=== PATIENT | male | born 1965 | race Caucasian/White ===

== ENCOUNTER 2017-05-30 10:00 | Inpatient (IN) | payer OTHER ==
[2017-05-30] MEDS ORDERED: NS 0.9% 1000 ML* 1,000 ML IV ONE (10:12)
[2017-05-30] MEDS ORDERED: Albuterol/Ipratropium NEB.SOL* Albuterol 2.5 MG/Ipratropium 0.5 MG 3 ML INH ONE (10:51)
[2017-05-30 11:06] LABS: ABS Basophils 0 10^3/ul (0-0.2); ABS Eosinophils 0 10^3/ul (0-0.6); ABS Lymphocytes 0.7 10^3/ul (1.0-4.8); ABS Monocytes 0.4 10^3/ul (0-0.8); ABS Neutrophils 7.8 10^3/ul (1.5-7.7); ABS Nucleated RBC 0 10^3/ul; Eosinophil % 0.1 % (0-6); Hematocrit 44 % (42-52); Hemoglobin 15.2 g/dl (14.0-18.0); Lymphocyte % 8.2 % (25-47); Mean Corpuscular HGB Conc 35 g/dl (31-36); Mean Corpuscular Hemoglobin 31 pg (27-31); Mean Corpuscular Volume 91 fL (80-94); Mean Platelet Volume 8 um3 (7.4-10.4); Nucleated Red Blood Cells % 0; Platelet Count 178 10^3/ul (150-450); Red Blood Count 4.84 10^6/ul (4.0-5.4); Red Cell Distribution Width 14 % (10.5-15)
--- NOTE | 2017-05-30 11:07 | RAD ---
HISTORY: Unresponsive COMPARISONS: June 29, 2015 VIEWS: 2: frontal portable view of the chest at 10:30 AM FINDINGS: LINES AND TUBES: None. CARDIOMEDIASTINAL SILHOUETTE: The cardiomediastinal silhouette is normal for portable technique. PLEURA: The costophrenic angles are sharp. No pleural abnormalities are noted. LUNG PARENCHYMA: There is a nodular density overlying the right lower lung on the frontal view measuring 2.4 cm in size. ABDOMEN: The upper abdomen is clear. There is no subphrenic gas. BONES AND SOFT TISSUES: No bone or soft tissue abnormalities are noted. IMPRESSION: 2.4 CM ILL-DEFINED NODULAR DENSITY OVERLYING THE RIGHT LOWER LUNG ON THE FRONTAL VIEW. RECOMMEND CONSIDERATION OF FURTHER EVALUATION WITH CONTRAST-ENHANCED CT OF THE CHEST
[2017-05-30 11:24] LABS: EGFR Non-African American 83.6 (>60)
[2017-05-30 11:59] LABS: Urine Appearance Clear; Urine Blood 1+ (Negative); Urine Color Yellow; Urine Ketones Trace (Negative); Urine Protein Negative (Negative); Urine Specific Gravity 1.039 (1.010-1.030); Urine Urobilinogen Negative (Negative)
[2017-05-30] MEDS ORDERED: Albuterol 2.5 MG/3 ML NEB.SOL* (0.083%) INH PRN (12:04)
[2017-05-30] MEDS ORDERED: Ondansetron INJ* 2 MG/ML VIAL IV PRN (12:04)
[2017-05-30] MEDS ORDERED: Piperacillin/Tazobac ADVAN(*) 3.375 GM in NS 0.9% 100 ML* 100 ML IVPB ONE (12:04)
[2017-05-30] MEDS ORDERED: methylPREDNISolone 125 MG* 2 ML VIAL IV ONE (12:10)
[2017-05-30] MEDS ORDERED: Piperacillin/Tazobac (*) 3.375 GM BAG ONE (12:16)
[2017-05-30] MEDS ORDERED: Iohexol 300* (CONTRAST) 10 ML SDV IV ONE (12:21)
[2017-05-30] MEDS ORDERED: Dextrose 50% Syringe 50 ML* 25 GM/50 ML SYRINGE IV PUSH PRN ×2 (12:23→17:21)
[2017-05-30] MEDS ORDERED: Iohexol 350* (CONTRAST) 500 ML MDV IV ONE (12:27)
[2017-05-30] MEDS ORDERED: Azithromycin IV(*) 500 MG in NS 0.9% 250 ML* 250 ML IVPB SCH (13:00)
[2017-05-30] MEDS ORDERED: Zosyn per Pharmacy* NOTE FOLLOW UP SCH (13:00)
[2017-05-30] MEDS ORDERED: methylPREDNISolone 125 MG* 2 ML VIAL IV SCH (13:00)
[2017-05-30] MEDS ORDERED: Insulin GLARGINE(*) 1 UNITS UNIT SUBCUT SCH (13:00)
--- NOTE | 2017-05-30 13:24 | RAD ---
HISTORY: Shortness of breath, cough COMPARISONS: Chest x-ray dated May 30, 2017 TECHNIQUE: Multiple contiguous axial CT scans of the chest were obtained after the administration of nonionic intravenous contrast, timed to the pulmonary arterial phase of contrast enhancement.. Coronal and sagittal multiplanar reformations are also submitted for review. FINDINGS: NECK AND THYROID: The lower neck and thyroid are unremarkable. CHEST WALL: There is no lower cervical, axillary, or supraclavicular lymphadenopathy by size criteria. HEART AND PERICARDIUM: The heart is unremarkable. AORTA AND PULMONARY VASCULATURE: There is no pulmonary arterial filling defect to suggest pulmonary embolism. There is no linear filling defect within the aorta to suggest aortic dissection. MEDIASTINUM: There is no mediastinal lymphadenopathy by size criteria. ISAC: There is no hilar lymphadenopathy by size criteria. AIRWAY AND ESOPHAGUS: There is opacification of the bronchi to the lower lobes bilaterally, suggestive of mucous plugging. LUNG PARENCHYMA: There is atheromatous change with bullous disease. The nodular density noted on chest x-ray corresponds to an ill-defined nodule measuring 2.8 x 1.8 transversely and 1.3 cm in CC dimension. This is located within the right middle lobe PLEURA: No pleural abnormalities are noted. UPPER ABDOMEN: There is fatty infiltration of the liver. BONES AND SOFT TISSUES: No bone or soft tissue abnormalities are noted. OTHER: None. IMPRESSION: 1. NO PULMONARY ARTERIAL FILLING DEFECT TO SUGGEST PULMONARY WAS. 2. THERE IS OPACIFICATION OF THE BRONCHI TO THE LOWER LOBES BILATERALLY SUGGESTIVE OF MUCOUS SLIGHT. 3. EMPHYSEMA. 4. 2.3 CM NODULE OF THE RIGHT MIDDLE LOBE CORRESPONDING TO THE PLAIN FILM FINDING. THE RECOMMENDATIONS FOR FOLLOWUP AND MANAGEMENT OF AN INCIDENTALLY DETECTED PULMONARY NODULE GREATER THAN 8 MM IN SIZE, IN A PATIENT WITHOUT A HISTORY OF MALIGNANCY, INCLUDE FOLLOWUP CT AT 3 MONTHS, PET-CT, AND/OR BIOPSY. NOTES: SIZE = AVERAGE LENGTH AND WIDTH; HIGH RISK IS DEFINED A HISTORY OF SMOKING OR OTHER KNOW RISK FACTORS FOR LUNG CANCER; LOW RISK IS DEFINED MINIMAL OR ABSENT HISTORY OF SMOKING OR OTHER KNOWN RISK FACTORS. Abdias Guerin, ANTONY Corrigan, RETA Rowland, et al (2017) "Guidelines for Management of Incidental Pulmonary Nodules Detected on CT Images: From the Fleischner Society 2017." Radiology; 284(1): 228-243. doi:10.1148/radiol.[id number] 1.
[2017-05-30] MEDS: NS 0.9% 1000 ML* 1,000 ML IV SCH (14:32)
[2017-05-30] MEDS: Levofloxacin 750 MG IVPREMIX(* 750 MG/150 ML BAG IVPB SCH (14:32)
[2017-05-30] MEDS: Albuterol/Ipratropium NEB.SOL* Albuterol 2.5 MG/Ipratropium 0.5 MG 3 ML INH SCH ×3 (14:56→23:24)
[2017-05-30] MEDS: Mometasone/Formoter 200/5 MDI INH SCH ×2 (15:03→19:35)
[2017-05-30] MEDS: predniSONE TAB* 20 MG PO SCH (15:16)
[2017-05-30] MEDS: Insulin LISPRO* 1 UNITS UNIT SUBCUT SCH ×3 (15:17→21:56)
[2017-05-30] MEDS: Heparin VIAL(*) 5000 UNITS/ML VIAL (FIVE THOUSAND) SUBCUT SCH ×2 (15:18→21:59)
[2017-05-30] MEDS: metroNIDAZOLE IV 500 MG/100ML* 500 MG/100 ML BAG IVPB SCH ×2 (16:23→21:55)
--- NOTE | 2017-05-30 16:42 | ED ---
Nicole Brandon Gabriel, scribed for Kings Barajas MD on 05/30/17 at 1123 . Respiratory - HPI Summary HPI Summary: This patient is a 52 year old M presenting to [facility] accompanied by his with a chief complaint of difficulty breathing since 05-27-17. The patient rates the pain 2/10 in severity. Symptoms alleviated by nothing, he took a nebulizer treatment this morning. Patient reports myalgia, epigastric burning, wheezing on inspiration, cough, and congestion. Pt was seen at and given antibiotics for PNA. Positive exposure to influenza B. - History of Current Complaint Chief Complaint: EDFluSymptoms Stated Complaint: DIFFICULTY BREATHING Time Seen by Provider: 05/30/17 10:12 Hx Obtained From: Patient Onset/Duration: Still Present Timing: Constant Initial Severity: Mild Current Severity: Mild Pain Intensity: 2 Associated Signs and Symptoms: Nasal Congestion - Allergy/Home Medications Allergies/Adverse Reactions: Allergies Allergy/AdvReac Type Severity Reaction Status Date / Time No Known Allergies Allergy Verified 05/30/17 10:25 Home Medications: Home Medications Benzonatate CAP* [Tessalon 100 MG CAP*] 100 mg PO TID PRN 05/30/17 [History Confirmed 05/30/17] DOXYcycline CAP(*) [DOXYcycline 100MG CAP(*)] 100 mg PO BID 05/30/17 [History Confirmed 05/30/17] Undecylenic AC/Zinc Undecylena [Fungi-Nail Toe-Foot Ointment] 20 gm TOPICAL DAILY 05/30/17 [History Confirmed 05/30/17] PMH/Surg Hx/FS Hx/Imm Hx Endocrine/Hematology History: Reports: Hx Diabetes Denies: Hx Thyroid Disease Cardiovascular History: Denies: Hx Hypertension Respiratory History: Reports: Hx Asthma, Hx Pneumonia Denies: Hx Chronic Obstructive Pulmonary Disease (COPD) Comment Only: Other Respiratory Problems/Disorders - HX PNEUMONIA X 7 TIMES IN PAST GI History: Denies: Hx Ulcer - Surgical History Surgery Procedure, Year, and Place: Anal Fistula 2010, Tonsillectomy, Pins in left hand (screws). Infectious Disease History: No Infectious Disease History: Reports: Hx Shingles Denies: Hx Hepatitis, Hx Human Immunodeficiency Virus (HIV), History Other Infectious Disease, Traveled Outside the [place] in Last 30 Days - Family History Known Family History: Positive: Cardiac Disease, Other - cancer - Social History Alcohol Use: Occasionally Substance Use Type: Reports: None Hx Tobacco Use: No Smoking Status (MU): Former Smoker Type: Cigarettes Have You Smoked in the Last Year: No Review of Systems Respiratory: Other - congestion Positive: Cough, Other - wheezing Positive: Abdominal Pain - epigatric burning Positive: Myalgia All Other Systems Reviewed And Are Negative: Yes Physical Exam - Summary Physical Exam Summary: VITAL SIGNS: Reviewed. GENERAL: Patient is a well-developed and nourished male who is lying comfortable in the stretcher. Patient is not in any acute respiratory distress. HEAD AND FACE: No signs of trauma. No ecchymosis, hematomas or skull depressions. No sinus tenderness. EYES: PERRLA, EOMI x 2, No injected conjunctiva, no nystagmus. EARS: Hearing grossly intact. Ear canals and tympanic membranes are within normal limits. MOUTH: Oropharynx within normal limits. NECK: Supple, trachea is midline, no adenopathy, no JVD, no carotid bruit, no c- spine tenderness, neck with full ROM. CHEST: Symmetric, no tenderness at palpation LUNGS: bilateral crackles with wheezing CVS: tachycardia, S1 and S2 present, no murmurs or gallops appreciated. ABDOMEN: Soft, non-tender. No signs of distention. No rebound no guarding, and no masses palpated. Bowel sounds are normal. EXTREMITIES: FROM in all major joints, LE edema NEURO: Alert and oriented x 3. No acute neurological deficits. Speech is normal and follows commands. SKIN: diaphoretic Triage Information Reviewed: Yes Vital Signs On Initial Exam: Initial Vitals Temp Pulse Resp BP Pulse Ox 96.9 F 95 18 136/77 92 05/30/17 10:06 05/30/17 10:06 05/30/17 10:06 05/30/17 10:06 05/30/17 10:06 Vital Signs Reviewed: Yes Diagnostics - Vital Signs Vital Signs Temp Pulse Resp BP Pulse Ox 05/30/17 11:13 103 16 96 05/30/17 11:00 94 21 136/79 95 05/30/17 10:30 138/77 05/30/17 10:22 96 17 139/76 91 05/30/17 10:06 96.9 F 95 18 136/77 92 - Laboratory Lab Results: Lab Results 05/30/17 05/30/17 Range/Units 09:23 10:56 WBC 9.0 (3.5-10.8) 10^3/ul RBC 4.84 (4.0-5.4) 10^6/ul Hgb 15.2 (14.0-18.0) g/dl Hct 44 (42-52) % MCV 91 (80-94) fL MCH 31 (27-31) pg MCHC 35 (31-36) g/dl RDW 14 (10.5-15) % Plt Count 178 (150-450) 10^3/ul MPV 8 (7.4-10.4) um3 Neut % (Auto) 86.6 H (38-83) % Lymph % (Auto) 8.2 L (25-47) % [place] % (Auto) 4.7 (0-7) % Eos % (Auto) 0.1 (0-6) % Baso % (Auto) 0.4 (0-2) % Absolute Neuts (auto) 7.8 H (1.5-7.7) 10^3/ul Absolute Lymphs (auto) 0.7 L (1.0-4.8) 10^3/ul Absolute Monos (auto) 0.4 (0-0.8) 10^3/ul Absolute Eos (auto) 0 (0-0.6) 10^3/ul Absolute Basos (auto) 0 (0-0.2) 10^3/ul Absolute Nucleated RBC 0 10^3/ul Nucleated RBC % 0 Influenza A (Rapid) Negative (Negative) Influenza B (Rapid) Positive A (Negative) Result Diagrams: 05/30/17 10:56 05/30/17 10:56 Lab Statement: Any lab studies that have been ordered have been reviewed, and results considered in the medical decision making process. - Radiology CXR Radiology Interpretation Completed By: Radiologist - 2.4 CM ILL-DEFINED NODULAR DENSITY OVERLYING THE RIGHT LOWER LUNG ON THE FRONTAL VIEW. RECOMMEND CONSIDERATION OF FURTHER EVALUATION WITH CONTRAST-ENHANCED CT OF THE CHEST ED physician has reviewed this radiology report. - EKG 11:38 Cardiac Rate: NL EKG Rhythm: Sinus Rhythm - at 93 BPM EKG Interpretation: no ST elevations Disposition - Course Assessment/Plan: This patient is a 52 year old M presenting to [facility] accompanied by his with a chief complaint of difficulty breathing since 05-27. The patient rates the pain 2/10 in severity. Symptoms alleviated by nothing , he took a nebulizer treatment this morning. Patient reports myalgia, epigastric burning, wheezing on inspiration, cough, and congestion. Pt was seen at and given antibiotics for PNA. Positive exposure to influenza B. An EKG reveals NSR, no ST elevations. CXR reveals, per radiologist, 2.4 CM ILL- DEFINED NODULAR DENSITY OVERLYING THE RIGHT LOWER LUNG ON THE. FRONTAL VIEW. RECOMMEND CONSIDERATION OF FURTHER EVALUATION WITH CONTRAST-ENHANCED CT OF. THE CHEST. Test results with no significant abnormalities except for glucose of 463 and a lactic of 2.8. UA negative for UTI. The patient was positive influenza B positive. In the ED course the patient was given Iv fluids for hyperglycemia, albuterol, and Tamiflu. Because the patient was hypoxic I discussed that case with Dr. Pascual who accepts the patient for admission. the patient is hemodynamically stable and alert oritnetedx3. - Diagnoses Provider Diagnoses: Influenza B, Asthma exacerbation, Pulmonary nodule - Physician Notifications Discussed Care Of Patient With: Maryellen Pascual Time Discussed With Above Provider: 12:02 Instructed by Provider To: Admit As Inpatient Discharge - Discharge Plan Condition: Stable Disposition: ADMITTED TO [facility] The documentation as recorded by the Nicole childers Gabriel accurately reflects the service I personally performed and the decisions made by me, Kings Barajas MD.
[2017-05-30] MEDS ORDERED: Insulin LISPRO* 1 UNITS UNIT SUBCUT ONE ×2 (17:21→21:50)
[2017-05-30] MEDS ORDERED: Pneumococcal *Vac Polyvalent 0.5 ML VIAL IM ONE (18:00)
--- NOTE | 2017-05-30 21:18 | HP ---
CC: Dr. Akers * HISTORY AND PHYSICAL: DATE OF ADMISSION: 05/30/17 PRIMARY CARE PROVIDER: Dr. Akers. ATTENDING PHYSICIAN WHILE IN THE HOSPITAL: Maryellen Pascual MD * (report dictated by Rk Ortega NP) CHIEF COMPLAINT: 1. Cough. 2. Shortness of breath. HISTORY OF PRESENT ILLNESS: Mr. Quintero is a 52-year-old male patient, who has seasonal asthma and borderline diabetes. He comes into our ER today stating actually a week ago today, he was exposed to flu from his son, flu B. He started taking prophylactic Tamiflu; however, at the end of the week, Wednesday starting into , he started noticing he was getting a cough and Wednesday , he was noticing he was having chills, body aches. He went to [facility] on Wednesday. He started getting progressive worsening symptoms throughout . He went to [facility] on Wednesday. They started him on antibiotics. He had been taking steroids because he had had some left over and he started taking those on Wednesday and he also was prescribed b.i.d. Tamiflu. Initially felt little bit better on Wednesday; however he got worse again today. He noticed he has had a progressive worsening shortness of breath with minimal exertion. He said he started again not feeling well, had progressive worsening shortness of breath. He was having worsening cough, pain with taking a deep breath. His was concerned because she noted that his oxygen levels were on the lower side. He was concerned, came into the ED, was found to be wheezing with possible pneumonia, on x-ray with possible mass. He was mildly hypoxic around 90% on room air and because of this, we were asked to evaluate for admission. PAST MEDICAL HISTORY: Significant for: 1. Asthma. 2. Borderline diabetes. PAST SURGICAL HISTORY: 1. He has had a tonsillectomy. 2. He also had a left hand surgery. 3. He has had anal fissure repair. HOME MEDICATIONS: Include: 1. Fungi nail ointment 20 g topically daily. 2. Tamiflu 75 mg p.o. b.i.d. 3. Doxycycline 100 mg p.o. b.i.d. 4. Prednisone 20 mg daily. 5. Tessalon Perles 100 mg p.o. t.i.d. as needed. 6. ProAir 2 puffs p.o. every 4 hours as needed. ALLERGIES TO MEDICATIONS: Includes no known drug allergies. FAMILY HISTORY: His father had a history of bladder cancer, prostate cancer. Mother's history was reviewed. He denied specifically the mother having any history of heart disease or cancers or stroke or diabetes. SOCIAL HISTORY: He is a former smoker. He quit 20 years ago. He occasionally drinks alcohol. Surrogate decision maker is his . REVIEW OF SYSTEMS: There is no documented fever. He does not own a thermometer , but there is noted chills at home. He denied having any double vision. There has been no ear discharge. He did admit to having rhinorrhea. There has been a cough, it has been nonproductive. He does admit to dyspnea, dyspnea on exertion, chest pain with taking a deep breath and coughing. He denies any nausea or vomiting. No dysuria. No frequency. There was no seizure. No loss of consciousness. No pruritus and no skin ulcerations. Review of 14 systems completed, all others negative. PHYSICAL EXAMINATION GENERAL: At this time, Mr. Quintero is a 52-year-old male patient. He appears to be well-nourished. He is sitting in the ED stretcher. He does not appear to be in any acute distress. VITAL SIGNS: Blood pressure 137/82, pulse 93, respirations 20, O2 sat 94%, temperature 96.9. HEENT: Head atraumatic, normocephalic. Eyes: EOMs are intact. Sclerae anicteric, not pale. Throat: Oral mucosa appears to be moist. No oropharyngeal erythema. NECK: Supple. LUNGS: He had wheezing noted throughout, these were expiratory, bilateral lung meza. Equal diaphragmatic expansion. HEART: Sounds S1, S2. Regular rate and rhythm. No murmurs, rubs, or gallops. ABDOMEN: Soft, flat, it was nontender. Bowel sounds were present. EXTREMITIES: Pulses were 2+ throughout. He is moving all 4 extremities with 5/ 5 strength. NEUROLOGIC: The patient is awake, he is alert. He is oriented x3. His tongue was midline. Construction Assistant were equal. He had no gross focal deficits. SKIN: The skin was grossly intact. DIAGNOSTIC STUDIES/LAB DATA: Today, WBC 9.0, RBC of 4.84, hemoglobin of 15.2, hematocrit 44, platelet count of 178. Sodium 133, potassium 3.8, chloride 99, bicarb 23, BUN 16, creatinine 0.95, glucose of 463, calcium of 9.4, total bili 0.8. AST 22, ALT 31, alk phos 84. BNP of 10. Albumin of 4.2. Serology was flu B positive. He did have a chest x-ray obtained today, which showed 2.4 cm ill- defined nodule density overlying the right lower lung on the frontal view. Recommend consideration for further evaluation with contrast enhanced CT of the chest. EKG is pending. Old medical records were reviewed. ASSESSMENT AND PLAN: Mr. Quintero is a 52-year-old male patient coming in to the ED today with complaints of cough, shortness of breath, chills at home, not feeling well for the last week. He was evaluated in the ED today. There was concern because it was found that he had pneumonia, possible mass. We were asked to evaluate for admission. He will be admitted under inpatient status for : 1. Influenza with pneumonia. At this point, I am going to go ahead and put the patient on Levaquin. We will go ahead and put him on steroids, 40 mg of prednisone daily, also put him on nebs standing. In addition to this, we will start to get Legionella antigen, strep pneumo antigen, sputum culture and we will continue to follow him closely. I am going to get a CT of the chest. He is pretty tachycardic when he moved and with the finding of the new mass, I am going to rule out pulmonary embolism. So, again I did order the CT of the chest in that regard as well. 2. Right lower lung mass. I am getting a CT of the chest. We most likely need to get input from oncology services depending on the findings of the CT and possibly pulmonary services as well. I am waiting for the CT to make this consult request. 3. Asthma with exacerbation. Again, steroids, nebs standing and Dulera has been ordered. 4. Diabetes. His sugars here was 462 today. I am getting an A1c. Giving him 10 of Lantus and put him on a sliding scale. I am also going to go ahead and put him on a consistent carb diet. 5. Code status. Full code. 6. Fluids, electrolytes and nutrition. He can have consistent carb diet. TIME SPENT: Time spent on admission was 60 minutes, greater than half the time was spent [id number] with the patient obtaining my history and physical; other half time was spent going over the plan of care with the patient and implementing plan of care. I did discuss the plan of care with my attending, Dr. Pascual, she is in agreement. RK ORTEGA, DENISSE [id number]/CPS #: [id number] GONZALO
[2017-05-30] MEDS: Oseltamivir CAP* 75 MG CAP PO SCH (21:54)
[2017-05-31] MEDS: Albuterol/Ipratropium NEB.SOL* Albuterol 2.5 MG/Ipratropium 0.5 MG 3 ML INH SCH ×5 (03:30→19:17)
[2017-05-31] MEDS: NS 0.9% 1000 ML* 1,000 ML IV SCH (03:34)
[2017-05-31 04:39] LABS: ABS Basophils 0.1 10^3/ul (0-0.2); ABS Eosinophils 0 10^3/ul (0-0.6); ABS Lymphocytes 1.2 10^3/ul (1.0-4.8); ABS Monocytes 0.7 10^3/ul (0-0.8); ABS Nucleated RBC 0 10^3/ul; Eosinophil % 0 % (0-6); Hematocrit 40 % (42-52); Hemoglobin 14.1 g/dl (14.0-18.0); Lymphocyte % 14.9 % (25-47); Mean Corpuscular HGB Conc 35 g/dl (31-36); Mean Corpuscular Hemoglobin 32 pg (27-31); Mean Corpuscular Volume 90 fL (80-94); Mean Platelet Volume 8 um3 (7.4-10.4); Nucleated Red Blood Cells % 0.1; Platelet Count 159 10^3/ul (150-450); Red Blood Count 4.43 10^6/ul (4.0-5.4); Red Cell Distribution Width 14 % (10.5-15)
[2017-05-31 04:50] LABS: EGFR Non-African American 93.8 (>60)
[2017-05-31] MEDS: Heparin VIAL(*) 5000 UNITS/ML VIAL (FIVE THOUSAND) SUBCUT SCH ×3 (05:30→21:29)
[2017-05-31] MEDS: metroNIDAZOLE IV 500 MG/100ML* 500 MG/100 ML BAG IVPB SCH (05:30)
[2017-05-31] MEDS: Mometasone/Formoter 200/5 MDI INH SCH ×2 (07:35→19:17)
[2017-05-31] MEDS: Oseltamivir CAP* 75 MG CAP PO SCH ×2 (08:48→21:28)
[2017-05-31] MEDS: Acetaminophen TAB* 325 MG PO PRN ×2 (08:48→20:27)
[2017-05-31] MEDS: predniSONE TAB* 20 MG PO SCH (08:48)
[2017-05-31] MEDS: Insulin LISPRO* 1 UNITS UNIT SUBCUT SCH ×4 (08:49→21:28)
--- NOTE | 2017-05-31 08:54 | PN ---
Subjective Date of Service: 05/31/17 Interval History: Mr. Quintero reports continued dyspnea on exertion not significantly changed since admission. He denies chest pain, nausea, or abdominal pain. Objective Active Medications: Acetaminophen (Tylenol Tab*) 650 mg PO Q4H PRN Albuterol (Ventolin 2.5 Mg/3 Ml Neb.Jaz*) 2.5 mg INH Q2H PRN Albuterol/Ipratropium (Duoneb (Albuterol 2.5 Mg/Ipratropium 0.5 Mg)) 1 neb INH [id number] AWAKE ANGELES Benzonatate (Tessalon Cap*) 100 mg PO TID PRN Dextrose (D50w Syringe 50 Ml*) 12.5 gm IV PUSH .FOR FS < 60 - SS PRN Heparin Sodium (Porcine) (Heparin Vial(*)) 5,000 units SUBCUT Q8HR ANGELES Sodium Chloride (Ns 0.9% 1000 Ml*) 1,000 mls @ 100 mls/hr IV PER RATE ANGELES Levofloxacin/Dextrose (Levaquin 750 Mg Ivpremix(*)) 750 mg in 150 mls @ 100 mls /hr IVPB Q24H ANGELES Metronidazole/Sodium Chloride (Flagyl 500 Mg Ivpb*) 500 mg in 100 mls @ 100 mls /hr IVPB Q8HR ANGELES Insulin Glargine (Lantus(*)) 10 units SUBCUT Q24H ANGELES Insulin Human Lispro (Humalog*) 0 units SUBCUT ACHS ANGELES Mometasone Furoate/Formoterol Fumar (Dulera 200/5 Mdi*) 2 puff INH BID ANGELES Ondansetron HCl (Zofran Inj*) 4 mg IV Q6H PRN Oseltamivir Phosphate (Tamiflu Cap*) 75 mg PO BID ANGELES Pneumococcal Polyvalent Vaccine (Pneumococcal Vac 23-Polyvalent*) 0.5 ml IM .ONCE ONE Prednisone (Deltasone Tab*) 40 mg PO DAILY [facility] Vital Signs: Temp Pulse Resp BP Pulse Ox 98.2 F 98 18 114/84 92 05/31/17 07:34 05/31/17 07:39 05/31/17 07:39 05/31/17 07:34 05/31/17 07:39 Oxygen Devices in Use Now: Nasal Cannula Appearance: Male lying in bed in NAD Eyes: No Scleral Icterus Ears/Nose/Mouth/Throat: Mucous Membranes Moist Neck: Trachea Midline Respiratory: Symmetrical Chest Expansion and Respiratory Effort, Clear to Auscultation Cardiovascular: NL Sounds; No Murmurs; No JVD, No Edema Abdominal: NL Sounds; No Tenderness; No Distention Lymphatic: No Cervical Adenopathy Extremities: No Edema Skin: No Rash or Ulcers Neurological: Alert and Oriented x 3, NL Muscle Strength and Tone Nutrition: Taking PO's Result Diagrams: 05/31/17 04:28 05/31/17 04:27 Additional Lab and Data: . Microbiology and Other Data: . Assess/Plan/Problems-Billing Assessment: Mr. Quintero is a 52 yo M with a PMH of diabetes who was admitted on 05/30/17 with flu and pneumonia. - Patient Problems (1) Acute respiratory failure with hypoxia Comment: - Now on 3L NC. - Continue treatment for flu and pneumonia. - Shea consulted for acute hypoxic respiratory failure and nodule seen on CT. (2) Flu Comment: - Continue tamiflu. (3) Pneumonia Comment: - Continue levaquin. - Continue prednisone. - Stopped flagyl as do not see clear component of postobstructive pneumonia. (4) Diabetes Comment: - BG 250s, uncontrolled due to steroids. - Increase lantus with lispro SSI coverage. (5) DVT prophylaxis Comment: - Heparin Sq. (6) Full code status Comment: Status and Disposition: Inpatient. Anticipate discharge to home when medically stable.
[2017-05-31] MEDS ORDERED: Pneumococcal *Vac Polyvalent 0.5 ML VIAL IM ONE (09:00)
[2017-05-31] MEDS: Levofloxacin 750 MG IVPREMIX(* 750 MG/150 ML BAG IVPB SCH (12:39)
[2017-05-31] MEDS ORDERED: Insulin GLARGINE(*) 1 UNITS UNIT SUBCUT SCH (18:00)
[2017-06-01] MEDS: Albuterol/Ipratropium NEB.SOL* Albuterol 2.5 MG/Ipratropium 0.5 MG 3 ML INH SCH ×5 (00:17→19:01)
--- NOTE | 2017-06-01 00:30 | CONS ---
PULMONARY CONSULTATION REPORT: DATE OF CONSULTATION: 05/31/17 CONSULTATION REQUESTED BY: Karis Patterson NP REASON FOR CONSULTATION: Evaluation of abnormal CT chest. HISTORY OF PRESENT ILLNESS: The patient is a 52-year-old male, former smoker with history of seasonal asthma, diabetes. The patient presents for evaluation of worsening shortness of breath and cough. The patient reports sick contact recently with son with flu-like symptoms, started taking Tamiflu; however, middle of last week, started having worsening cough and shortness of breath. The patient also noticed chills, body aches. He was seen in Urgent Care on Wednesday, was prescribed antibiotics and steroids. The patient felt slightly better. Two days ago, symptoms started getting worse again. The patient decided to come in to the emergency room for further evaluation of worsening shortness of breath. The patient was noted to have O2 sat of 90% in the emergency room. The patient was also noted to be tachypneic. The patient tested positive for flu. He was admitted for management of influenza, pneumonia , and also acute asthma exacerbation. The patient had CT scan of the chest performed for further evaluation of abnormality noted on chest x-ray. I have personally reviewed chest x-ray and CT scan of the chest done with the patient today. The patient noted to have acute airspace opacity, nodular density in the right lower lung. The patient had CTA of the chest, which was personally reviewed by me. He did not have filling defects in the pulmonary arteries. There is nodular density measuring about 2.8 to 1.8 in the right middle lobe area just near the minor fissure. The patient also with evidence of mucus plugging. He also was noted to have signficant emphysematous and bullous changes in lungs. The patient was started on prednisone, bronchodilators, and Levaquin. The patient was also started on Tamiflu. Pulmonary consultation was requested for evaluation of abnormality on the CT chest and for evaluation of the symptoms. The patient was seen and examined at bedside by me this morning. The patient reports slightly worsening shortness of breath. The patient reports significant wheezing, tightness in his chest and inability to take a deep breath. The patient reports bouts of cough each time he would take a deep breath. The patient also reports mostly dry cough; however, feels congested in his chest. The patient is more worried about the CT chest findings as it was read as concerning for malignancy. PAST MEDICAL HISTORY: 1. Asthma. 2. Borderline diabetes. PAST SURGICAL HISTORY: 1. Tonsillectomy. 2. Left hand surgery. 3. Anal fissure repair. MEDICATIONS AT HOME: 1. Nail ointment for fungus. 2. Tamiflu. 3. Doxycycline. 4. Prednisone. 5. Tessalon Perles. 6. ProAir. ALLERGIES: No known drug allergies. FAMILY HISTORY: Bladder cancer, prostate cancer in father. SOCIAL HISTORY: Former smoker, quit 20 years ago. Occasional alcohol intake. REVIEW OF SYSTEMS: All 14 systems reviewed and as per HPI. PHYSICAL EXAMINATION: The patient in bed, in no apparent distress, having dry cough intermittently. Vital Signs: Temperature 98.1, pulse 86 beats per minute , respiratory rate 20 per minute, O2 sat 92% on 3 L, blood pressure 149/78. HEENT: Pupils are equal, reactive to light. Mucous membranes moist. Respiratory: Diminished air entry bilaterally, wheeze and rhonchi on auscultation. Cardiovascular: S1, S2 present, regular. No murmurs, gallops, or rubs. Abdomen: Soft, nontender, nondistended. Bowel sounds present. Extremities: Normal range of motion. 2+ pulses. Neurologic: No focal deficits. Skin: No rash or bruises. LABORATORY DATA/DIAGNOSTIC STUDIES: WBC count 8.0, hemoglobin 14.1, hematocrit 40, platelet count 159. Sodium 132, potassium 3.5, chloride 100, bicarb 26, BUN 14, creatinine 0.46. Influenza B positive. Chest x-ray and CT scan of the chest as described above in HPI. IMPRESSION AND RECOMMENDATIONS: 52-year-old male, former smoker, quit 20 years ago with history of asthma, admitted with influenza infection, found to have opacity on CT chest. 1. Influenza pneumonia. 2. Acute asthma exacerbation secondary to viral bronchitis. 3. Abnormal finding on CT chest - mucus plugging/atelectasis versus mass lesion. The patient with pneumonia with viral bronchitis resulting in acute exacerbation of asthma. The patient started on prednisone bronchodilators, slowly improving. He is needing O2 supplementation at 2 L per minute secondary to the acute bronchospasm. Hemodynamically stable currently. Abnormality on the CT chest likely secondary to mucus plugging and atlectasis. He does have evidence of mucus plugging in multiple other areas in the smaller bronchioles. The nodular opacity is right against minor fissure, more likely to be mucus plugging than mass lesion. Given smoking history and malignancy history in the family, would follow up with repeat CT scan in about 6 weeks. The patient is high risk for any interventions at this time. Given bullous chnages, he will also need alpha-1 testing as out patient Above was discussed in detail with the patient, his not at bedside. I will contact his over phone. I have also discussed these findings with Karis Patterson and my recommendations were reviewed with her. Thank you for allowing me to participate in the care of your patient. Will follow up with you. [id number]/[facility] #: [id number] GONZALO
[2017-06-01] MEDS: Heparin VIAL(*) 5000 UNITS/ML VIAL (FIVE THOUSAND) SUBCUT SCH ×3 (06:12→21:24)
--- NOTE | 2017-06-01 07:33 | PN ---
Subjective Date of Service: 06/01/17 Interval History: Mr. Quintero reports that he feels about 20% better than yesterday. He remains on 3L NC. He was able to cough up some sputum overnight which he feels is trapped in his lungs. He denies chest pain other other complaint. He notes that he was told that he had pre-diabetes with a HgbA1c of 6-7 sometime last year and was on medication briefly. Objective Active Medications: Acetaminophen (Tylenol Tab*) 650 mg PO Q4H PRN Albuterol (Ventolin 2.5 Mg/3 Ml Neb.Jaz*) 2.5 mg INH Q2H PRN Albuterol/Ipratropium (Duoneb (Albuterol 2.5 Mg/Ipratropium 0.5 Mg)) 1 neb INH [id number] AWAKE ANGELES Benzonatate (Tessalon Cap*) 100 mg PO TID PRN Dextrose (D50w Syringe 50 Ml*) 12.5 gm IV PUSH .FOR FS < 60 - SS PRN Guaifenesin (Robitussin*) 5 ml PO Q4H PRN Heparin Sodium (Porcine) (Heparin Vial(*)) 5,000 units SUBCUT Q8HR ANGELES Levofloxacin/Dextrose (Levaquin 750 Mg Ivpremix(*)) 750 mg in 150 mls @ 100 mls /hr IVPB Q24H ANGELES Insulin Glargine (Lantus(*)) 15 units SUBCUT QPM ANGELES Insulin Human Lispro (Humalog*) 0 units SUBCUT ACHS ANGELES Mometasone Furoate/Formoterol Fumar (Dulera 200/5 Mdi*) 2 puff INH BID ANGELES Ondansetron HCl (Zofran Inj*) 4 mg IV Q6H PRN Oseltamivir Phosphate (Tamiflu Cap*) 75 mg PO BID ANGELES Prednisone (Deltasone Tab*) 40 mg PO DAILY ANGELES Vital Signs: Temp Pulse Resp BP Pulse Ox 98.2 F 90 16 110/58 96 06/01/17 03:28 06/01/17 03:28 06/01/17 03:28 06/01/17 03:28 06/01/17 03:28 Oxygen Devices in Use Now: Nasal Cannula Appearance: Male sitting up in chair in NAD Eyes: No Scleral Icterus Ears/Nose/Mouth/Throat: Mucous Membranes Moist Neck: Trachea Midline Respiratory: Symmetrical Chest Expansion and Respiratory Effort, - - Wheezing and rhonchi noted bilaterally, no accessory muscle use Cardiovascular: No Edema Abdominal: NL Sounds; No Tenderness; No Distention Lymphatic: No Cervical Adenopathy Extremities: No Edema Skin: No Rash or Ulcers Neurological: Alert and Oriented x 3, NL Muscle Strength and Tone Nutrition: Taking PO's Result Diagrams: 05/31/17 04:28 05/31/17 04:27 Additional Lab and Data: . Microbiology and Other Data: . Assess/Plan/Problems-Billing Assessment: Mr. Quintero is a 52 yo M with a PMH of diabetes who was admitted on 05/30/17 with flu and pneumonia. - Patient Problems (1) Acute respiratory failure with hypoxia Comment: - Slow improvement, remains on 3L NC. - Continue treatment for flu and pneumonia with mucous plugging. - Appreciate consulation from Dr. Valdivia. (2) Flu Comment: - Continue tamiflu. (3) Pneumonia Comment: - Continue levaquin, guaifenesin, and tessalon pearles. (4) Asthma exacerbation Comment: - Switch to solumedrol BID from prednisone per Dr. Valdivia. - Appreciate Dr Valdivia consultation. Significant emphysematous and bullous changes on CT chest with mucous plugging but unlikely to have mass. Recommend follow up CT in 6 weeks as well as PFTs. Also recommend alpha-1 antitrysin testing outpatient. (5) Diabetes Comment: - New diagnosis with Hgb A1c of 9. - BG 250s, in part elevated due to steroids - Increase lantus to 20 units with lispro SSI coverage. (6) DVT prophylaxis Comment: - Heparin Sq. (7) Full code status Comment: Status and Disposition: Inpatient. Anticipate discharge to home when medically stable.
[2017-06-01] MEDS: Mometasone/Formoter 200/5 MDI INH SCH ×2 (08:16→19:01)
[2017-06-01] MEDS: predniSONE TAB* 20 MG PO SCH (09:06)
[2017-06-01] MEDS: Acetaminophen TAB* 325 MG PO PRN (09:07)
[2017-06-01] MEDS: Insulin LISPRO* 1 UNITS UNIT SUBCUT SCH ×4 (09:08→21:23)
[2017-06-01] MEDS: Oseltamivir CAP* 75 MG CAP PO SCH ×2 (09:08→21:24)
[2017-06-01] MEDS: guaiFENesin LIQ* 100 MG/5 ML UDC PO PRN (11:16)
[2017-06-01] MEDS: methylPREDNISolone SOD 40 MG* 1 ML VIAL IV SCH ×2 (11:16→21:26)
[2017-06-01] MEDS: Levofloxacin 750 MG IVPREMIX(* 750 MG/150 ML BAG IVPB SCH (13:15)
--- NOTE | 2017-06-01 16:54 | PN ---
Progress Note - Progress Note Date of Service: 06/01/17 - Pulm f/u visit Note: Pt seen and examined at bedside. Pt reports feeling better today, still having trouble expectorating thick phleghm Active Medications Generic Name Dose Route Start Last Admin Trade Name Freq PRN Reason Stop Dose Admin Acetaminophen 650 mg 05/30/17 12:04 06/01/17 09:07 Tylenol Tab* PO 650 mg Q4H PRN Administration FEVER/PAIN Albuterol 2.5 mg 05/30/17 12:04 05/31/17 05:32 Ventolin 2.5 Mg/3 Ml Neb.Jaz* INH 2.5 mg Q2H PRN Administration SOB/WHEEZING Albuterol/Ipratropium 1 neb 06/01/17 13:00 06/01/17 13:35 Duoneb (Albuterol 2.5 Mg/Ipratropium 0.5 Mg) INH 1 neb [id number] AWAKE ANGELES Administration Benzonatate 100 mg 05/30/17 12:10 Tessalon Cap* PO TID PRN COUGH Dextrose 12.5 gm 05/30/17 17:21 D50w Syringe 50 Ml* IV PUSH .FOR FS < 60 - SS PRN FS < 60 Guaifenesin 5 ml 05/31/17 09:55 06/01/17 11:16 Robitussin* PO 5 ml Q4H PRN Administration COUGH Heparin Sodium (Porcine) 5,000 units 05/30/17 14:00 06/01/17 13:14 Heparin Vial(*) SUBCUT 5,000 units Q8HR ANGELES Administration Levofloxacin/Dextrose 750 mg in 150 mls @ 100 mls/hr 05/30/17 13:00 06/01/17 13:15 Levaquin 750 Mg Ivpremix(*) IVPB 100 mls/hr Q24H ANGELES Administration Insulin Glargine 20 units 06/01/17 18:00 Lantus(*) SUBCUT QPM ANGELES Insulin Human Lispro 0 units 05/31/17 07:30 06/01/17 13:13 Humalog* SUBCUT 12 units ACHS ANGELES Administration Protocol Methylprednisolone Sodium Succinate 40 mg 06/01/17 10:00 06/01/17 11:16 Solu-Medrol 40 Mg IV 40 mg Q12H ANGELES Administration Mometasone Furoate/Formoterol Fumar 2 puff 05/30/17 13:00 06/01/17 08:16 Dulera 200/5 Mdi* INH 2 puff BID ANGELES Administration Ondansetron HCl 4 mg 05/30/17 12:04 Zofran Inj* IV Q6H PRN NAUSEA Oseltamivir Phosphate 75 mg 05/30/17 21:00 06/01/17 09:08 Tamiflu Cap* PO 06/01/17 23:59 75 mg BID ANGELES Administration Vital Signs Temp Pulse Resp BP Pulse Ox 98.6 F 86 16 133/75 94 06/01/17 15:34 06/01/17 15:34 06/01/17 15:34 06/01/17 15:34 06/01/17 15:34 O/E: Pt in NAD, sitting up in bed HEENT: PERRLA, No JVD Lungs: Good a/e b/l, scaterred wheeze present CVS: S1, S2+ Abd: Obese, BS+ Ext: Normal ROM Neuro: No focal defecits Laboratory Results - last 24 hr 05/31/17 05/31/17 06/01/17 16:45 20:34 08:08 Glucose 387 H POC Glucose (mg/dL) 377 H 214 H 06/01/17 12:24 Glucose POC Glucose (mg/dL) 336 H 52 y o m former smoker wiht h/o asthma a/w worsening SOB found to have acute asthma exacerbation sec to Influenza and viral bronchitis Pt also noted to have mucus plugging on CT chest along with more nodular opacity in RML near minor fissure Opacity likely to be atelectasis and mucus plugging Pt also noted to have signficant emphysematous changes and bullae in lungs Pt denies signficant smoking Will check alpha-1 Will need PFTs as out pt c/w Solumedrol 40 mg q 12 hrs c/w bronchodilators Having thick phleghm, will order saline nebs c/w flutter device Discussed above in detail with pt and his at bedside. They had many questions regarding disease process, CT chest findings which were all answered to their satisfaction Will need f/u Ct chest in 6 weeks
[2017-06-01] MEDS ORDERED: Insulin GLARGINE(*) 1 UNITS UNIT SUBCUT SCH (18:00)
[2017-06-02] MEDS: Albuterol/Ipratropium NEB.SOL* Albuterol 2.5 MG/Ipratropium 0.5 MG 3 ML INH SCH ×4 (04:28→20:24)
[2017-06-02] MEDS: guaiFENesin LIQ* 100 MG/5 ML UDC PO PRN (06:07)
[2017-06-02] MEDS: Heparin VIAL(*) 5000 UNITS/ML VIAL (FIVE THOUSAND) SUBCUT SCH ×3 (06:08→21:56)
[2017-06-02 06:42] LABS: ABS Basophils 0 10^3/ul (0-0.2); ABS Eosinophils 0 10^3/ul (0-0.6); ABS Lymphocytes 1.3 10^3/ul (1.0-4.8); ABS Monocytes 0.5 10^3/ul (0-0.8); ABS Neutrophils 8.5 10^3/ul (1.5-7.7); ABS Nucleated RBC 0 10^3/ul; Eosinophil % 0.1 % (0-6); Hematocrit 43 % (42-52); Hemoglobin 15.1 g/dl (14.0-18.0); Lymphocyte % 12.5 % (25-47); Mean Corpuscular HGB Conc 36 g/dl (31-36); Mean Corpuscular Hemoglobin 32 pg (27-31); Mean Corpuscular Volume 90 fL (80-94); Mean Platelet Volume 9 um3 (7.4-10.4); Nucleated Red Blood Cells % 0.1; Platelet Count 186 10^3/ul (150-450); Red Blood Count 4.72 10^6/ul (4.0-5.4); Red Cell Distribution Width 14 % (10.5-15); White Blood Count 10.4 10^3/ul (3.5-10.8)
[2017-06-02] MEDS: Mometasone/Formoter 200/5 MDI INH SCH ×2 (07:37→20:25)
[2017-06-02] MEDS: Insulin LISPRO* 1 UNITS UNIT SUBCUT SCH ×4 (08:39→20:57)
[2017-06-02] MEDS: Sodium Chloride(INHALANT) 7%* 4 ML NEB.SOLN INH PRN (10:06)
[2017-06-02] MEDS: methylPREDNISolone SOD 40 MG* 1 ML VIAL IV SCH ×2 (10:55→21:57)
[2017-06-02] MEDS: Levofloxacin 750 MG IVPREMIX(* 750 MG/150 ML BAG IVPB SCH (12:25)
--- NOTE | 2017-06-02 13:32 | PN ---
Subjective Date of Service: 06/02/17 Interval History: Patient states again that he feels "20% better than yesterday". Patient is now able to be maintained on RA at rest but still gets significantly short of breath with exertion. Patient states he still is coughing but feels as if he can 't bring up adequate sputum. Patient denies CP, F/C, N/V, abdominal pain, diarrhea, dysuria, or other pain. Reports slightly increased sputum production with flutter valve. Family History: Findings - No history of unexplained emphysema or Cirrhosis in relatives that he is aware of. Social History: Unchanged from Admission Past Medical History: Unchanged from Admission Objective Active Medications: Acetaminophen (Tylenol Tab*) 650 mg PO Q4H PRN PRN Reason: FEVER/PAIN Last Admin: 06/01/17 09:07 Dose: 650 mg Albuterol (Ventolin 2.5 Mg/3 Ml Neb.Jaz*) 2.5 mg INH Q2H PRN PRN Reason: SOB/WHEEZING Last Admin: 05/31/17 05:32 Dose: 2.5 mg Albuterol/Ipratropium (Duoneb (Albuterol 2.5 Mg/Ipratropium 0.5 Mg)) 1 neb INH [id number] AWAKE [facility] Last Admin: 06/02/17 13:27 Dose: 1 neb Benzonatate (Tessalon Cap*) 100 mg PO TID PRN PRN Reason: COUGH Dextrose (D50w Syringe 50 Ml*) 12.5 gm IV PUSH .FOR FS < 60 - SS PRN PRN Reason: FS < 60 Guaifenesin (Robitussin*) 5 ml PO Q4H PRN PRN Reason: COUGH Last Admin: 06/02/17 06:07 Dose: 5 ml Heparin Sodium (Porcine) (Heparin Vial(*)) 5,000 units SUBCUT Q8HR [facility] Last Admin: 06/02/17 12:25 Dose: 5,000 units Levofloxacin/Dextrose (Levaquin 750 Mg Ivpremix(*)) 750 mg in 150 mls @ 100 mls /hr IVPB Q24H [facility] Last Admin: 06/02/17 12:25 Dose: 100 mls/hr Insulin Glargine (Lantus(*)) 30 units SUBCUT QPM [facility] Insulin Human Lispro (Humalog*) 0 units SUBCUT ACHS ANGELES PRN Reason: Protocol Last Admin: 06/02/17 12:24 Dose: 12 units Methylprednisolone Sodium Succinate (Solu-Medrol 40 Mg) 40 mg IV Q12H [facility] Last Admin: 06/02/17 10:55 Dose: 40 mg Mometasone Furoate/Formoterol Fumar (Dulera 200/5 Mdi*) 2 puff INH BID [facility] Last Admin: 06/02/17 07:37 Dose: 2 puff Ondansetron HCl (Zofran Inj*) 4 mg IV Q6H PRN PRN Reason: NAUSEA Sodium Chloride (Hyper-Giorgio 7%*) 4 ml INH .SEE ORDERS PRN PRN Reason: WHEEZING Last Admin: 06/02/17 10:06 Dose: 4 ml Vital Signs - 8 hr 06/02/17 06/02/17 06/02/17 07:39 07:42 10:42 Temperature 98.1 F Pulse Rate 83 93 90 Respiratory 16 16 Rate Blood Pressure 140/90 (mmHg) O2 Sat by Pulse 96 95 97 Oximetry Oxygen Devices in Use Now: None Appearance: Patient is a 52yo male who appears older than stated age and is sitting in the bed in [facility]. Eyes: No Scleral Icterus, PERRLA Ears/Nose/Mouth/Throat: NL Teeth, Lips, Gums, Clear Oropharnyx, Mucous Membranes Moist Neck: NL Appearance and Movements; NL JVP, Trachea Midline Respiratory: Symmetrical Chest Expansion and Respiratory Effort, - - Wheezes and course rhonchi throughout. Cardiovascular: NL Sounds; No Murmurs; No JVD, RRR, - - 1+ edema in B/L LE. Abdominal: NL Sounds; No Tenderness; No Distention, No Hepatosplenomegaly Lymphatic: No Cervical Adenopathy Extremities: No Edema, No Clubbing, Cyanosis Skin: No Rash or Ulcers, No Nodules or Sclerosis Neurological: Alert and Oriented x 3, NL Sensation, NL Muscle Strength and Tone , - - CN II-XII intact. Result Diagrams: 06/02/17 06:08 05/31/17 04:27 Additional Lab and Data: . Microbiology and Other Data: . Assess/Plan/Problems-Billing Assessment: Mr. Quintero is a 52 yo M with a PMH of diabetes and asthma who was admitted on 02/06 with flu and pneumonia who is improving slowly. - Patient Problems (1) Acute respiratory failure with hypoxia Current Visit: Yes Status: Acute Code(s): J96.01 - ACUTE RESPIRATORY FAILURE WITH HYPOXIA SNOMED Code(s): 30563745 Comment: Slow improvement. Now on RA Continue treatment for flu and pneumonia with mucous plugging. With Steroids, Antibiotics, Flutter Valve, Hypertonic saline nebulizers, and inhalers. Appreciate consulation from Dr. Valdivia. (2) Pneumonia Current Visit: Yes Status: Acute Code(s): J18.9 - PNEUMONIA, UNSPECIFIED ORGANISM SNOMED Code(s): 658758519 Comment: Continue levaquin, guaifenesin, and tessalon pearles. No growth on sputum culture. (3) Asthma exacerbation Current Visit: Yes Status: Acute Code(s): J45.901 - UNSPECIFIED ASTHMA WITH (ACUTE) EXACERBATION SNOMED Code(s): 284828188 Comment: Switch to solumedrol BID from prednisone per Dr. Valdivia. Appreciate Dr Valdivia consultation. Significant emphysematous and bullous changes on CT chest with mucous plugging but unlikely to have mass. Recommend follow up CT in 6 weeks as well as PFTs. Also recommend alpha-1 antitrysin testing outpatient. (4) Diabetes Current Visit: Yes Status: Acute Code(s): E11.9 - TYPE 2 DIABETES MELLITUS WITHOUT COMPLICATIONS SNOMED Code(s): 20050685 Comment: New diagnosis with Hgb A1c of 9. BG up to 400, 271 this AM in part elevated due to steroids Increase lantus to 30 units with lispro SSI coverage. (5) Flu Current Visit: Yes Status: Acute Code(s): J11.1 - FLU DUE TO UNIDENTIFIED INFLUENZA VIRUS W OTH RESP MANIFEST SNOMED Code(s): 5335580 Comment: Continue tamiflu. 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 (6) Full code status Current Visit: Yes Status: Acute Code(s): Z78.9 - OTHER SPECIFIED HEALTH STATUS SNOMED Code(s): 102129466 Comment: (7) DVT prophylaxis Current Visit: Yes Status: Acute Code(s): WCV3194 - SNOMED Code(s): 996916659 Comment: Heparin Sq. Status and Disposition: Inpatient. Anticipate discharge to home when medically stable.
[2017-06-02] MEDS: Benzonatate CAP* 100 MG PO PRN ×2 (14:49→21:59)
--- NOTE | 2017-06-02 15:20 | PN ---
Progress Note - Progress Note Date of Service: 06/02/17 - Pulm f/u note Note: Pt seen and examined at bedside. Pt walking in hallway today with his . Reports iimprovement in SOB Active Medications Generic Name Dose Route Start Last Admin Trade Name Freq PRN Reason Stop Dose Admin Acetaminophen 650 mg 05/30/17 12:04 06/01/17 09:07 Tylenol Tab* PO 650 mg Q4H PRN Administration FEVER/PAIN Albuterol 2.5 mg 05/30/17 12:04 05/31/17 05:32 Ventolin 2.5 Mg/3 Ml Neb.Jaz* INH 2.5 mg Q2H PRN Administration SOB/WHEEZING Albuterol/Ipratropium 1 neb 06/01/17 13:00 06/02/17 13:27 Duoneb (Albuterol 2.5 Mg/Ipratropium 0.5 Mg) INH 1 neb [id number] AWAKE ANGELES Administration Benzonatate 100 mg 05/30/17 12:10 06/02/17 14:49 Tessalon Cap* PO 100 mg TID PRN Administration COUGH Dextrose 12.5 gm 05/30/17 17:21 D50w Syringe 50 Ml* IV PUSH .FOR FS < 60 - SS PRN FS < 60 Guaifenesin 5 ml 05/31/17 09:55 06/02/17 06:07 Robitussin* PO 5 ml Q4H PRN Administration COUGH Heparin Sodium (Porcine) 5,000 units 05/30/17 14:00 06/02/17 12:25 Heparin Vial(*) SUBCUT 5,000 units Q8HR ANGELES Administration Levofloxacin/Dextrose 750 mg in 150 mls @ 100 mls/hr 05/30/17 13:00 06/02/17 12:25 Levaquin 750 Mg Ivpremix(*) IVPB 100 mls/hr Q24H ANGELES Administration Insulin Glargine 30 units 06/02/17 18:00 Lantus(*) SUBCUT QPM ANGELES Insulin Human Lispro 0 units 05/31/17 07:30 06/02/17 12:24 Humalog* SUBCUT 12 units ACHS ANGELES Administration Protocol Methylprednisolone Sodium Succinate 40 mg 06/01/17 10:00 06/02/17 10:55 Solu-Medrol 40 Mg IV 40 mg Q12H ANGELES Administration Mometasone Furoate/Formoterol Fumar 2 puff 05/30/17 13:00 06/02/17 07:37 Dulera 200/5 Mdi* INH 2 puff BID ANGELES Administration Ondansetron HCl 4 mg 05/30/17 12:04 Zofran Inj* IV Q6H PRN NAUSEA Sodium Chloride 4 ml 06/02/17 09:03 06/02/17 10:06 Hyper-Giorgio 7%* INH 4 ml .SEE ORDERS PRN Administration WHEEZING Vital Signs Temp Pulse Resp BP Pulse Ox 97.8 F 90 14 116/66 95 06/02/17 11:40 06/02/17 13:31 06/02/17 13:31 06/02/17 11:40 06/02/17 13:31 O/E: Pt in NAD HEENT: PERRLA, No JVD Lungs: Good a/e b/l, scaterred wheeze present, much improved CVS: S1, S2+, regular Abd: Obese, BS+ Ext: Normal ROM Neuro: No focal defecits Laboratory Results - last 24 hr 06/01/17 06/01/17 06/02/17 16:48 21:06 06:08 WBC 10.4 RBC 4.72 Hgb 15.1 Hct 43 MCV 90 MCH 32 H MCHC 36 RDW 14 Plt Count 186 MPV 9 Neut % (Auto) 82.1 Lymph % (Auto) 12.5 L [place] % (Auto) 5.0 Eos % (Auto) 0.1 Baso % (Auto) 0.3 Absolute Neuts (auto) 8.5 H Absolute Lymphs (auto) 1.3 Absolute Monos (auto) 0.5 Absolute Eos (auto) 0 Absolute Basos (auto) 0 Absolute Nucleated RBC 0 Nucleated RBC % 0.1 POC Glucose (mg/dL) 327 H 400 H 06/02/17 06/02/17 07:36 12:03 WBC RBC Hgb Hct MCV MCH MCHC RDW Plt Count MPV Neut % (Auto) Lymph % (Auto) [place] % (Auto) Eos % (Auto) Baso % (Auto) Absolute Neuts (auto) Absolute Lymphs (auto) Absolute Monos (auto) Absolute Eos (auto) Absolute Basos (auto) Absolute Nucleated RBC Nucleated RBC % POC Glucose (mg/dL) 271 H 309 H I/R: 52 y o m former smoker wiht h/o asthma a/w worsening SOB found to have acute asthma exacerbation sec to Influenza and viral bronchitis Pt also noted to have mucus plugging on CT chest along with more nodular opacity in RML near minor fissure Opacity likely to be atelectasis and mucus plugging Pt also noted to have significant emphysematous changes and bullae in lungs Pt reports improvement in Sx, he is not needing O2 supplementation Will taper steroids Will check alpha-1, PFTs as out pt Lower Solumedrol 30 mg q 12 hrs c/w bronchodilators c/w saline nebs c/w flutter device Discussed above in detail with pt and his at bedside. 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
[2017-06-02] MEDS ORDERED: Insulin GLARGINE(*) 1 UNITS UNIT SUBCUT SCH (18:00)
[2017-06-03] MEDS: Albuterol/Ipratropium NEB.SOL* Albuterol 2.5 MG/Ipratropium 0.5 MG 3 ML INH SCH ×4 (01:46→19:41)
[2017-06-03] MEDS: Heparin VIAL(*) 5000 UNITS/ML VIAL (FIVE THOUSAND) SUBCUT SCH ×3 (05:30→21:51)
[2017-06-03 05:50] LABS: Hematocrit 42 % (42-52); Hemoglobin 14.8 g/dl (14.0-18.0); Mean Corpuscular HGB Conc 35 g/dl (31-36); Mean Corpuscular Hemoglobin 32 pg (27-31); Mean Corpuscular Volume 90 fL (80-94); Mean Platelet Volume 8 um3 (7.4-10.4); Platelet Count 200 10^3/ul (150-450); Red Blood Count 4.68 10^6/ul (4.0-5.4); Red Cell Distribution Width 14 % (10.5-15); White Blood Count 10.9 10^3/ul (3.5-10.8)
[2017-06-03 06:04] LABS: EGFR Non-African American 85.7 (>60)
[2017-06-03 06:45] LABS: ABS Basophils 0.1 10^3/ul (0-0.2); ABS Eosinophils 0 10^3/ul (0-0.6); ABS Lymphocytes 1.6 10^3/ul (1.0-4.8); ABS Monocytes 0.6 10^3/ul (0-0.8); ABS Neutrophils 8.7 10^3/ul (1.5-7.7); ABS Nucleated RBC 0 10^3/ul; Eosinophil % 0 % (0-6); Lymphocyte % 14.4 % (25-47); Nucleated Red Blood Cells % 0.1
[2017-06-03] MEDS: Mometasone/Formoter 200/5 MDI INH SCH ×2 (07:51→19:43)
[2017-06-03] MEDS: Sodium Chloride(INHALANT) 7%* 4 ML NEB.SOLN INH PRN (07:58)
[2017-06-03] MEDS ORDERED: Sodium Chloride(INHALANT) 7%* 4 ML NEB.SOLN INH SCH (08:00)
[2017-06-03] MEDS: predniSONE TAB* 20 MG PO SCH (08:36)
[2017-06-03] MEDS: metFORMIN* 500 MG TAB PO SCH ×2 (08:36→17:58)
[2017-06-03] MEDS: Insulin LISPRO* 1 UNITS UNIT SUBCUT SCH ×4 (08:37→21:51)
[2017-06-03] MEDS: guaiFENesin LIQ* 100 MG/5 ML UDC PO PRN ×2 (08:46→21:50)
[2017-06-03] MEDS ORDERED: SITAGLIPTIN 50 MG PO SCH (09:00)
--- NOTE | 2017-06-03 12:48 | PN ---
Progress Note - Progress Note Date of Service: 06/03/17 - Pulm f/u note Note: Pt seen and examined at bedside. Pt reports improvement in breathing. He also reports that he slept well last night with CPAP and is feeling better this morning. Active Medications Generic Name Dose Route Start Last Admin Trade Name Freq PRN Reason Stop Dose Admin Acetaminophen 650 mg 05/30/17 12:04 06/01/17 09:07 Tylenol Tab* PO 650 mg Q4H PRN Administration FEVER/PAIN Albuterol 2.5 mg 05/30/17 12:04 05/31/17 05:32 Ventolin 2.5 Mg/3 Ml Neb.Jaz* INH 2.5 mg Q2H PRN Administration SOB/WHEEZING Albuterol/Ipratropium 1 neb 06/01/17 13:00 06/03/17 07:51 Duoneb (Albuterol 2.5 Mg/Ipratropium 0.5 Mg) INH 1 neb [id number] AWAKE ANGELES Administration Benzonatate 100 mg 05/30/17 12:10 06/02/17 21:59 Tessalon Cap* PO 100 mg TID PRN Administration COUGH Dextrose 12.5 gm 05/30/17 17:21 D50w Syringe 50 Ml* IV PUSH .FOR FS < 60 - SS PRN FS < 60 Guaifenesin 5 ml 05/31/17 09:55 06/03/17 08:46 Robitussin* PO 5 ml Q4H PRN Administration COUGH Heparin Sodium (Porcine) 5,000 units 05/30/17 14:00 06/03/17 05:30 Heparin Vial(*) SUBCUT 5,000 units Q8HR ANGELES Administration Insulin Human Lispro 0 units 05/31/17 07:30 06/03/17 12:36 Humalog* SUBCUT 9 units ACHS ANGELES Administration Protocol Metformin HCl 500 mg 06/03/17 08:00 06/03/17 08:36 Glucophage* PO 500 mg 0800,1700 ANGELES Administration Mometasone Furoate/Formoterol Fumar 2 puff 05/30/17 13:00 06/03/17 07:51 Dulera 200/5 Mdi* INH 2 puff BID ANGELES Administration Ondansetron HCl 4 mg 05/30/17 12:04 Zofran Inj* IV Q6H PRN NAUSEA Prednisone 60 mg 06/03/17 09:00 06/03/17 08:36 Deltasone Tab* PO 60 mg DAILY ANGELES Administration Sitagliptin Phosphate 50 mg 06/03/17 09:00 06/03/17 12:35 Januvia (Nf) PO 50 mg DAILY ANGELES Administration Sodium Chloride 4 ml 06/03/17 12:00 Hyper-Giorgio 7%* INH [id number] AWAKE [facility] Vital Signs Temp Pulse Resp BP Pulse Ox 97.6 F 59 18 107/43 95 06/03/17 07:30 06/03/17 11:00 06/03/17 11:00 06/03/17 11:00 06/03/17 11:00 O/E: Pt in NAD, sitting up in chair HEENT: PERRLA, No JVD, mucus membranes moist Lungs: Good a/e b/l, scaterred wheeze present CVS: S1, S2+, regular Abd: Obese, BS+, NT Ext: Normal ROM Neuro: AAOx3, No focal defecits Laboratory Results - last 24 hr 06/02/17 06/02/17 06/03/17 16:51 20:39 05:26 WBC 10.9 H RBC 4.68 Hgb 14.8 Hct 42 MCV 90 MCH 32 H MCHC 35 RDW 14 Plt Count 200 MPV 8 Neut % (Auto) 79.8 Lymph % (Auto) 14.4 L [place] % (Auto) 5.1 Eos % (Auto) 0 Baso % (Auto) 0.7 Absolute Neuts (auto) 8.7 H Absolute Lymphs (auto) 1.6 Absolute Monos (auto) 0.6 Absolute Eos (auto) 0 Absolute Basos (auto) 0.1 Absolute Nucleated RBC 0 Nucleated RBC % 0.1 Sodium Potassium Chloride Carbon Dioxide Anion Gap BUN Creatinine Est GFR ( Amer) Est GFR (Non-Af Amer) BUN/Creatinine Ratio Glucose POC Glucose (mg/dL) 346 H 386 H Lactic Acid Calcium Magnesium 06/03/17 06/03/17 06/03/17 05:26 05:26 08:00 WBC RBC Hgb Hct MCV MCH MCHC RDW Plt Count MPV Neut % (Auto) Lymph % (Auto) [place] % (Auto) Eos % (Auto) Baso % (Auto) Absolute Neuts (auto) Absolute Lymphs (auto) Absolute Monos (auto) Absolute Eos (auto) Absolute Basos (auto) Absolute Nucleated RBC Nucleated RBC % Sodium 132 L Potassium 4.5 Chloride 100 L Carbon Dioxide 25 Anion Gap 7 BUN 17 Creatinine 0.93 Est GFR ( Amer) 110.2 Est GFR (Non-Af Amer) 85.7 BUN/Creatinine Ratio 18.3 Glucose 293 H POC Glucose (mg/dL) 189 H Lactic Acid 1.3 Calcium 9.5 Magnesium 2.3 06/03/17 12:06 WBC RBC Hgb Hct MCV MCH MCHC RDW Plt Count MPV Neut % (Auto) Lymph % (Auto) [place] % (Auto) Eos % (Auto) Baso % (Auto) Absolute Neuts (auto) Absolute Lymphs (auto) Absolute Monos (auto) Absolute Eos (auto) Absolute Basos (auto) Absolute Nucleated RBC Nucleated RBC % Sodium Potassium Chloride Carbon Dioxide Anion Gap BUN Creatinine Est GFR ( Amer) Est GFR (Non-Af Amer) BUN/Creatinine Ratio Glucose POC Glucose (mg/dL) 295 H Lactic Acid Calcium Magnesium I/R: 52 y o m former smoker wiht h/o asthma a/w worsening SOB found to have acute asthma exacerbation sec to Influenza and viral bronchitis Pt also noted to have mucus plugging on CT chest along with more nodular opacity in RML near minor fissure Pt also noted to have significant emphysematous changes and bullae in lungs Will c/w steroid taper, sugars are elevated today c/w bronchodilators c/w saline nebs c/w flutter device Pt would need nebulizer eqipment on d/c Discussed above in detail with pt and his at bedside. D/w Jose Mcnamara [employer] Will check alpha-1, PFTs as out pt Will need f/u CT chest in 6 weeks
[2017-06-03] MEDS: Sodium Chloride(INHALANT) 7%* 4 ML NEB.SOLN INH SCH ×2 (13:45→19:43)
--- NOTE | 2017-06-03 16:17 | PN ---
Subjective Date of Service: 06/03/17 Interval History: Patient feeling better today. Still mildly SOB but decreased cough, no wheezing. No other complaints including CP, N/V, abdominal pain, dizziness, changes in vision, WILLIAMSON, or other pain. Discussed with patient ongoing management of his diabetes and he wanted to avoid at all possible having home insulin therapy and wants only oral therapy if possible. Family History: Findings - No history of unexplained emphysema or Cirrhosis in relatives that he is aware of. Social History: Unchanged from Admission Past Medical History: Unchanged from Admission Objective Active Medications: Acetaminophen (Tylenol Tab*) 650 mg PO Q4H PRN PRN Reason: FEVER/PAIN Last Admin: 06/01/17 09:07 Dose: 650 mg Albuterol (Ventolin 2.5 Mg/3 Ml Neb.Jaz*) 2.5 mg INH Q2H PRN PRN Reason: SOB/WHEEZING Last Admin: 05/31/17 05:32 Dose: 2.5 mg Albuterol/Ipratropium (Duoneb (Albuterol 2.5 Mg/Ipratropium 0.5 Mg)) 1 neb INH [id number] AWAKE [facility] Last Admin: 06/03/17 13:44 Dose: 1 neb Benzonatate (Tessalon Cap*) 100 mg PO TID PRN PRN Reason: COUGH Last Admin: 06/02/17 21:59 Dose: 100 mg Dextrose (D50w Syringe 50 Ml*) 12.5 gm IV PUSH .FOR FS < 60 - SS PRN PRN Reason: FS < 60 Guaifenesin (Robitussin*) 5 ml PO Q4H PRN PRN Reason: COUGH Last Admin: 06/03/17 08:46 Dose: 5 ml Heparin Sodium (Porcine) (Heparin Vial(*)) 5,000 units SUBCUT Q8HR [facility] Last Admin: 06/03/17 14:11 Dose: 5,000 units Insulin Human Lispro (Humalog*) 0 units SUBCUT ACHS ANGELES PRN Reason: Protocol Last Admin: 06/03/17 12:36 Dose: 9 units Metformin HCl (Glucophage*) 500 mg PO 0800,1700 [facility] Last Admin: 06/03/17 08:36 Dose: 500 mg Mometasone Furoate/Formoterol Fumar (Dulera 200/5 Mdi*) 2 puff INH BID [facility] Last Admin: 03/15/18 07:51 Dose: 2 puff Ondansetron HCl (Zofran Inj*) 4 mg IV Q6H PRN PRN Reason: NAUSEA Prednisone (Deltasone Tab*) 60 mg PO DAILY [facility] Last Admin: 06/03/17 08:36 Dose: 60 mg Sitagliptin Phosphate (Januvia (Nf)) 50 mg PO DAILY [facility] Last Admin: 06/03/17 12:35 Dose: 50 mg Sodium Chloride (Hyper-Giorgio 7%*) 4 ml INH [id number] AWAKE [facility] Last Admin: 06/03/17 13:45 Dose: 4 ml Vital Signs - 8 hr 06/03/17 06/03/17 11:00 13:49 Pulse Rate 59 81 Respiratory 18 16 Rate Blood Pressure 107/43 (mmHg) O2 Sat by Pulse 95 92 Oximetry Oxygen Devices in Use Now: None Appearance: Patient is a 52yo male who appears stated age and is sitting in the bed in [facility]. Eyes: No Scleral Icterus, PERRLA Ears/Nose/Mouth/Throat: NL Teeth, Lips, Gums, Clear Oropharnyx, Mucous Membranes Moist Neck: NL Appearance and Movements; NL JVP, Trachea Midline Respiratory: Symmetrical Chest Expansion and Respiratory Effort, - - Slight rhonchi and wheezing throughout. Cardiovascular: NL Sounds; No Murmurs; No JVD, RRR, - - Trace edema in B/L LE. Abdominal: NL Sounds; No Tenderness; No Distention, No Hepatosplenomegaly Lymphatic: No Cervical Adenopathy Extremities: No Edema, No Clubbing, Cyanosis Skin: No Rash or Ulcers, No Nodules or Sclerosis Neurological: Alert and Oriented x 3, NL Sensation, NL Muscle Strength and Tone , - - CN II-XII intact. Result Diagrams: 06/03/17 05:26 06/03/17 05:26 Additional Lab and Data: . Microbiology and Other Data: . Assess/Plan/Problems-Billing Assessment: Mr. Quintero is a 52 yo M with a PMH of diabetes and asthma who was admitted on 02/06 with flu and pneumonia who is improving slowly. Patient has uncontrolled blood sugars on steroid therapy. - Patient Problems (1) Acute respiratory failure with hypoxia Current Visit: Yes Status: Acute Code(s): J96.01 - ACUTE RESPIRATORY FAILURE WITH HYPOXIA SNOMED Code(s): 20019228 Comment: Slow improvement. Now on RA Continue treatment for flu and pneumonia with mucous plugging. With Steroids, Antibiotics, Flutter Valve, Hypertonic saline nebulizers, and inhalers. Appreciate consulation from Dr. Valdivia. Taper steroids over 2 weeks. (2) Pneumonia Current Visit: Yes Status: Acute Code(s): J18.9 - PNEUMONIA, UNSPECIFIED ORGANISM SNOMED Code(s): 833607044 Comment: Completed levaquin. Continue guaifenesin, and tessalon pearles. No growth on sputum culture. (3) Asthma exacerbation Current Visit: Yes Status: Acute Code(s): J45.901 - UNSPECIFIED ASTHMA WITH (ACUTE) EXACERBATION SNOMED Code(s): 862307403 Comment: Switched back to Prednisone PO. Appreciate Dr Valdivia consultation. Significant emphysematous and bullous changes on CT chest with mucous plugging but unlikely to have mass. Recommend follow up CT in 6 weeks as well as PFTs. Also recommend alpha-1 antitrysin testing outpatient. (4) Diabetes Current Visit: Yes Status: Acute Code(s): E11.9 - TYPE 2 DIABETES MELLITUS WITHOUT COMPLICATIONS SNOMED Code(s): 25386232 Comment: New diagnosis with Hgb A1c of 9. BG up to 400, 250 this AM in part elevated due to steroids Replaced lantus with Metformin and Januvia. Still uncontrolled FSBG. Will document sugars overnight and will likely need to send home with short acting insulin while on steroids. (5) Flu Current Visit: Yes Status: Acute Code(s): J11.1 - FLU DUE TO UNIDENTIFIED INFLUENZA VIRUS W OTH RESP MANIFEST SNOMED Code(s): 1695895 Comment: Completed Tamiflu. 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 (6) Full code status Current Visit: Yes Status: Acute Code(s): Z78.9 - OTHER SPECIFIED HEALTH STATUS SNOMED Code(s): 345030232 Comment: (7) DVT prophylaxis Current Visit: Yes Status: Acute Code(s): SIR0782 - SNOMED Code(s): 734806277 Comment: Heparin Sq. Status and Disposition: Inpatient. Anticipate discharge to home when medically stable.
[2017-06-03] MEDS: Benzonatate CAP* 100 MG PO PRN (21:51)
[2017-06-04] MEDS: Albuterol/Ipratropium NEB.SOL* Albuterol 2.5 MG/Ipratropium 0.5 MG 3 ML INH SCH ×3 (01:13→15:24)
[2017-06-04] MEDS: Sodium Chloride(INHALANT) 7%* 4 ML NEB.SOLN INH SCH ×4 (01:13→15:27)
[2017-06-04] MEDS: Heparin VIAL(*) 5000 UNITS/ML VIAL (FIVE THOUSAND) SUBCUT SCH ×2 (05:20→14:43)
[2017-06-04 07:08] LABS: Hematocrit 43 % (42-52); Hemoglobin 14.6 g/dl (14.0-18.0); Mean Corpuscular HGB Conc 34 g/dl (31-36); Mean Corpuscular Hemoglobin 31 pg (27-31); Mean Corpuscular Volume 92 fL (80-94); Mean Platelet Volume 9 um3 (7.4-10.4); Platelet Count 185 10^3/ul (150-450); Red Blood Count 4.69 10^6/ul (4.0-5.4); Red Cell Distribution Width 14 % (10.5-15); White Blood Count 9.6 10^3/ul (3.5-10.8)
[2017-06-04 07:10] LABS: EGFR Non-African American 82.6 (>60)
[2017-06-04 07:40] LABS: ABS Basophils 0 10^3/ul (0-0.2); ABS Eosinophils 0 10^3/ul (0-0.6); ABS Lymphocytes 2.6 10^3/ul (1.0-4.8); ABS Monocytes 0.9 10^3/ul (0-0.8); ABS Neutrophils 6.1 10^3/ul (1.5-7.7); ABS Nucleated RBC 0 10^3/ul; Eosinophil % 0.4 % (0-6); Nucleated Red Blood Cells % 0.2
[2017-06-04] MEDS: Mometasone/Formoter 200/5 MDI INH SCH (07:50)
[2017-06-04] MEDS: Insulin LISPRO* 1 UNITS UNIT SUBCUT SCH ×2 (09:06→13:41)
[2017-06-04] MEDS: predniSONE TAB* 20 MG PO SCH (09:09)
[2017-06-04] MEDS: metFORMIN* 500 MG TAB PO SCH (09:10)
--- NOTE | 2017-06-04 13:10 | PN ---
Progress Note - Progress Note Date of Service: 06/04/17 - Pulm f/u note Note: Pt seen and examined at bedside. Pt reports feeling better, cough is still happening however less frequent. Exercise capacity is improving Active Medications Generic Name Dose Route Start Last Admin Trade Name Freq PRN Reason Stop Dose Admin Acetaminophen 650 mg 05/30/17 12:04 06/01/17 09:07 Tylenol Tab* PO 650 mg Q4H PRN Administration FEVER/PAIN Albuterol 2.5 mg 05/30/17 12:04 05/31/17 05:32 Ventolin 2.5 Mg/3 Ml Neb.Jaz* INH 2.5 mg Q2H PRN Administration SOB/WHEEZING Albuterol/Ipratropium 1 neb 06/01/17 13:00 06/04/17 07:48 Duoneb (Albuterol 2.5 Mg/Ipratropium 0.5 Mg) INH 1 neb [id number] AWAKE ANGELES Administration Benzonatate 100 mg 05/30/17 12:10 06/03/17 21:51 Tessalon Cap* PO 100 mg TID PRN Administration COUGH Dextrose 12.5 gm 05/30/17 17:21 D50w Syringe 50 Ml* IV PUSH .FOR FS < 60 - SS PRN FS < 60 Guaifenesin 5 ml 05/31/17 09:55 06/03/17 21:50 Robitussin* PO 5 ml Q4H PRN Administration COUGH Heparin Sodium (Porcine) 5,000 units 05/30/17 14:00 06/04/17 05:20 Heparin Vial(*) SUBCUT 5,000 units Q8HR ANGELES Administration Insulin Human Lispro 0 units 05/31/17 07:30 06/04/17 09:06 Humalog* SUBCUT 6 units ACHS ANGELES Administration Protocol Metformin HCl 500 mg 06/03/17 08:00 06/04/17 09:10 Glucophage* PO 500 mg 0800,1700 ANGELES Administration Mometasone Furoate/Formoterol Fumar 2 puff 05/30/17 13:00 06/04/17 07:50 Dulera 200/5 Mdi* INH 2 puff BID ANGELES Administration Ondansetron HCl 4 mg 05/30/17 12:04 Zofran Inj* IV Q6H PRN NAUSEA Prednisone 60 mg 06/03/17 09:00 06/04/17 09:09 Deltasone Tab* PO 60 mg DAILY ANGELES Administration Sitagliptin Phosphate 50 mg 06/03/17 09:00 06/04/17 09:10 Januvia (Nf) PO 50 mg DAILY ANGELES Administration Sodium Chloride 4 ml 06/03/17 12:00 06/04/17 07:58 Hyper-Giorgio 7%* INH 4 ml [id number] AWAKE ANGELES Administration Vital Signs Temp Pulse Resp BP Pulse Ox 98.5 F 78 16 120/76 93 06/04/17 07:26 06/04/17 07:45 06/04/17 08:00 06/04/17 07:26 06/04/17 07:45 O/E: Pt in NAD, sitting up in chair eating breakfast HEENT: PERRLA, No JVD, mucus membranes moist Lungs: Good a/e b/l, scaterred wheeze present CVS: S1, S2+, regular Abd: Obese, BS+, NT Ext: Normal ROM Neuro: AAOx3, No focal deficits Laboratory Results - last 24 hr 06/03/17 06/03/17 06/04/17 16:55 21:30 06:15 WBC 9.6 RBC 4.69 Hgb 14.6 Hct 43 MCV 92 MCH 31 MCHC 34 RDW 14 Plt Count 185 MPV 9 Neut % (Auto) 62.9 Lymph % (Auto) 27.0 [place] % (Auto) 9.5 H Eos % (Auto) 0.4 Baso % (Auto) 0.2 Absolute Neuts (auto) 6.1 Absolute Lymphs (auto) 2.6 Absolute Monos (auto) 0.9 H Absolute Eos (auto) 0 Absolute Basos (auto) 0 Absolute Nucleated RBC 0 Nucleated RBC % 0.2 Sodium Potassium Chloride Carbon Dioxide Anion Gap BUN Creatinine Est GFR ( Amer) Est GFR (Non-Af Amer) BUN/Creatinine Ratio Glucose POC Glucose (mg/dL) 362 H 341 H Calcium Magnesium 06/04/17 06/04/17 06/04/17 06:15 07:51 12:42 WBC RBC Hgb Hct MCV MCH MCHC RDW Plt Count MPV Neut % (Auto) Lymph % (Auto) [place] % (Auto) Eos % (Auto) Baso % (Auto) Absolute Neuts (auto) Absolute Lymphs (auto) Absolute Monos (auto) Absolute Eos (auto) Absolute Basos (auto) Absolute Nucleated RBC Nucleated RBC % Sodium 134 Potassium 3.6 Chloride 100 L Carbon Dioxide 26 Anion Gap 8 BUN 16 Creatinine 0.96 Est GFR ( Amer) 106.2 Est GFR (Non-Af Amer) 82.6 BUN/Creatinine Ratio 16.7 Glucose 233 H POC Glucose (mg/dL) 212 H 313 H Calcium 9.3 Magnesium 2.2 I/R: 52 y o m former smoker wiht h/o asthma a/w worsening SOB found to have acute asthma exacerbation sec to Influenza and viral bronchitis Pt also noted to have mucus plugging on CT chest along with more nodular opacity in RML near minor fissure Pt also noted to have significant emphysematous changes and bullae in lungs Will c/w steroid taper, sugars remain elevated, pt refusing insulin, on oral agents c/w bronchodilators c/w saline nebs c/w flutter device Will check alpha-1, PFTs as out pt Will need f/u CT chest in 6 weeks D/c planning today Discussed above in detail with pt and his at bedside. D/w Jose Mcnamara NP
[2017-06-04 14:44] VITALS: BP 123/64
--- NOTE | 2017-06-05 16:19 | DS ---
CC: Dr. Cristela Akers * DISCHARGE SUMMARY: DATE OF ADMISSION: 05/30/17 DATE OF DISCHARGE: 06/04/17 PRIMARY CARE PROVIDER: Dr. Cristela Akers. MY ATTENDING WHILE IN THE HOSPITAL: Dr. Loc Pedroza.* (DICTATED BY BURKE PIERRE) CONSULTING PHYSICIAN: Dr. Elis Valdivia of Pulmonology. PRIMARY DISCHARGE DIAGNOSES: 1. Asthma exacerbation. 2. Diabetes mellitus type 2. 3. Lung mass, likely due to tenacious sputum. 4. Influenza B. SECONDARY DISCHARGE DIAGNOSES: None. STUDIES DONE WHILE IN THE HOSPITAL: Chest, thorax CTA from 05/30/17, read as: No pulmonary artery filling defect to suggest pulmonary embolism. There is opacification of bronchi in the lower lobes bilaterally suggestive of mucus emphysema, 2.3 cm nodule of the right middle lobe corresponding to the plain film finding. The recommendations for followup management of incidentally detected pulmonary nodule greater than 8 mm in size in a patient without history of malignancy, including followup CT at 3 months, PET-CT and/or biopsy. Electrocardiogram from 05/30/17 shows normal sinus rhythm, rate of 93, QTc of 457, normal axis, no significant ST segment changes. No enlargement or hypertrophy. No other abnormalities. Chest x-ray from 05/30/17 read as: A 2.4 cm ill-defined nodular density overlying the right lower lung in the frontal view. Recommended consideration for further evaluation with contrast enhanced CT of the chest. MEDICATIONS: At discharge: 1. Albuterol inhaler 1 puff p.o. q. 4 hours as needed. 2. Undecylenic Ac-Zn ointment 20 g topical daily. 3. Tylenol 650 mg p.o. q. 4 hours as needed. 4. Guaifenesin 600 mg p.o. b.i.d. 5. Insulin lispro subcutaneous a.c. as directed. 6. Metformin 500 mg p.o. b.i.d. 7. Breo Ellipta 200/25 one inhalation daily. 8. Prednisone 60 mg p.o. daily with taper. 9. Januvia 50 mg p.o. daily. 10. DuoNeb 1 neb inhalation q. 4 hours as needed for shortness of breath or wheezing. 11. Sodium chloride 7% inhalant 4 mL inhalation q. 6 hours as needed. 12. Tessalon 100 mg p.o. t.i.d. as needed. New medications at discharge: 1. Tylenol. 2. Guaifenesin. 3. Insulin. 4. Metformin. 5. Breo. 6. Prednisone. 7. Januvia. Medications discontinued at discharge: 1. Tamiflu. 2. Doxycycline. HOSPITAL COURSE: This is a brief summary of the patient's presentation. For more details, please see history and physical provided by Rk Ortega NP, from 05/30/17. In brief, the patient is a 52-year-old male with past medical history significant for the above, who presents to the ER 1 week after being exposed to his son with the flu, being started on prophylactic Tamiflu. The patient started getting a cough Wednesday and before admission, he went to [facility], was started on doxycycline and steroids, and started taking steroids from home. The patient got worse again on 05/30/17 with increasing shortness of breath, worsening cough, inability to take a deep breath, pleuritic pain. The patient had mild hypoxia, wheezing. The patient has a chest x-ray and CTA of the chest, which were read as above. The patient was admitted to the hospital with influenza, underlying asthma exacerbation, and concern for pneumonia. The patient was continued on Tamiflu, doxycycline, started on Solu-Medrol. The patient had negative Legionella and Strep pneumo antigen. The patient had a negative sputum culture. The patient had no signs of pulmonary embolism. The patient's blood sugar was 462 while in the hospital and hemoglobin A1c was 9. The patient was started on Lantus and sliding scale insulin. The patient was seen in consultation on 05/31/[address] Elis Valdivia. She believed that the lung mass was secondary to mucus plugging/ atelectasis, but recommended a followup CT in 6 weeks. The patient also had a bullous emphysematous changes on chest CT, raising the concern for Alpha-1 antitrypsin deficiency for which we recommend followup, outpatient. The patient was on 2 L oxygen at that time. The patient improved from 05/31 to , but remained on 3 L oxygen. The patient had a hard time bringing up sputum and was started on guaifenesin, Tessalon Perles. The patient's blood sugars responded moderately well to his insulin coverage with Lantus at 20 units daily. The patient was started on 06/02 on inhaled hypertonic saline, which again helps bringing up some mucus in conjunction with a flutter valve. The patient's Lantus insulin was increased to 30 units daily and he continues to need significant insulin lispro sliding scale coverage. The patient will be transitioned to oral prednisone. The patient continued to improve on 06/02 to 06/03 and will be weaned off of the oxygen and having increased exercise tolerance; however, he had persistent hyperglycemia during this time. The patient had no white blood cell count, except for 1 reading of 10.2. The patient had lactic acid of 2.8 on admission, which was repeated and was 1. The patient had no other significant abnormalities on laboratory testing throughout his hospitalization. The patient was resistant to being started on insulin. The patient was started on Januvia and metformin 500 mg p.o. b.i.d. while he was in the hospital to assess its affect on his blood sugars. The patient was continued on sliding scale lispro insulin and continued to have blood sugars in the high 200s to mid 300s. The patient was instructed to start with sliding scale insulin at home in conjunction with his metformin and Januvia, to follow up with his primary care provider and to monitor his blood sugars 3 times daily as his steroids were tapered. The patient was not started on Lantus insulin due to concern with possible hypoglycemia, as the patient's steroids were tapered as this was believed to be contributing to a certain degree to his hyperglycemia. The patient was seen by a telehealth nurse educator while in the hospital and educated on healthy lifestyle choices and how to use insulin and his glucometer. The patient was amenable to discharge on 06/04/17. PHYSICAL EXAMINATION AT DISCHARGE: General: The patient is a 52-year-old male , who appears stated age, and is sitting comfortably in bed, in no acute distress. Vital signs at time of discharge: Temperature 98.4, heart rate 93, respiratory rate 17, oxygen saturation 95% on room air, blood pressure 123/64. HEENT: Head normocephalic, atraumatic. Sclerae anicteric. No conjunctival injection. Nasal mucosa moist. Oral mucosa moist. No pharyngeal erythema, discharge, exudate, or thrush. Neck: Supple, nontender. No lymphadenopathy. No carotid bruit auscultated. No JVD. Cardiac: Regular rate and rhythm. No clicks, murmurs, gallops, or rubs. Pulses 2+ in the bilateral dorsalis pedis and posterior tibialis and radial areas. Trace lower extremity edema noted. No calf tenderness. No palpable cords. Respiratory: Slight wheezes and crackles in the middle lobes bilaterally. Good air exchange. No other adventitious lung sound. Abdomen: Soft, nontender, nondistended. Bowel sounds present, normoactive in all 4 quadrants. No hepatosplenomegaly. No abdominal bruits auscultated. Genitourinary: No suprapubic or CVA tenderness. Skin: Clean, dry, intact. No rash. Neuro: Cranial nerves II through XII intact. No focal deficits. Normal gait. Alert and oriented x3. Psychiatric: Pleasant and cooperative. LABORATORY DATA: On day of discharge, white blood cell count 9.6, hemoglobin 14.6, hematocrit 43, and platelet count 185. Sodium 134, potassium 3.6, chloride 100, carbon dioxide 26, anion gap 8, BUN 16, creatinine 0.96, glucose 233, calcium 9.3, and magnesium 2.2. DISCHARGE PLAN: The patient will be discharged home. The patient will be started on an asthma regimen for his asthma including Dulera inhalations, hypertonic saline inhalations every 6 hours, and Breo inhaler. The patient also had a prescription sent in for Dulera, if his insurance does not cover Breo. The patient's insurance does not cover Dulera. The patient previously had a poor reaction to Symbicort. The patient should have a consistent carbohydrate diet. The patient should follow up with Dr. Valdivia in 1 month and then have a repeat CT scan of his chest in 6 weeks. The patient should have alpha-1 antitrypsin level and formal pulmonary function tests outpatient. The patient should taper his steroids as above and monitor his blood sugar while steroids are tapered. The patient should follow up with his primary care provider for blood sugar levels above 400. The patient should return to the hospital for alarming symptoms such as chest pain, significantly increased shortness of breath, severe abdominal pain, fevers that do not respond to medication or other alarming symptoms. TIME SPENT: Approximately 60 minutes was spent on this discharge, 30 of which was spent [id number] with the patient obtaining history and physical and discussing treatment plan as above. BURKE PIERRE [id number]/[facility] #: [id number] GONZALO
== END 2017-06-04 16:45 | disposition home or self-care (01) | DRG 193 ==
LOC: ED 10:00 → MED 12:00
PROVIDERS: ADMIT Pediatrics; ATTEND Internal Medicine
DX: J10.1 Influenza due to other identified influenza virus with other respiratory manifestations (principal); J96.01 Acute respiratory failure with hypoxia; J45.901 Unspecified asthma with (acute) exacerbation; J98.11 Atelectasis; T17.990A Other foreign object in respiratory tract, part unspecified in causing asphyxiation, initial encounter; T38.0X5A Adverse effect of glucocorticoids and synthetic analogues, initial encounter; J20.8 Acute bronchitis due to other specified organisms; R91.1 Solitary pulmonary nodule; R91.8 Other nonspecific abnormal finding of lung field; E11.65 Type 2 diabetes mellitus with hyperglycemia; E66.9 Obesity, unspecified; Z23 Encounter for immunization; Z80.52 Family history of malignant neoplasm of bladder; Z79.4 Long term (current) use of insulin; Z80.42 Family history of malignant neoplasm of prostate; Z87.891 Personal history of nicotine dependence; Z72.89 Other problems related to lifestyle; Z87.01 Personal history of pneumonia (recurrent); Z82.49 Family history of ischemic heart disease and other diseases of the circulatory system; Z80.9 Family history of malignant neoplasm, unspecified; Y92.9 Unspecified place or not applicable
CPT/HCPCS: 36415; 71045; 71275; 80048; 80053; 81003; 81015; 82947; 83036; 83605; 83735; 83880; 85025; 87040; 87070; 87205; 87502; 87899; 90670; 90732; 93005; 94640; 94760; 99284; A9270-GY; J1644; J2543; J2920; J2930; J3490; J7512; Q9967

== ENCOUNTER → 2018-02-07 20:10 | Emergency (ER) | payer OTHER ==
[~2018-02-07 20:10] MED LIST: Ketorolac INJ* 30 MG/ML 1 ML VIAL IV PUSH ONE; Metoclopramide IV* 5 MG/ML 2 ML VIAL IV SLOW PU ONE; NS 0.9% 1000 ML* 1,000 ML IV ONE; diPHENhydraMINE PO* 50 MG PO ONE
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
[2018-02-07 23:10] LABS: ABS Basophils 0.1 10^3/ul (0-0.2); ABS Eosinophils 0.3 10^3/ul (0-0.6); ABS Lymphocytes 2.5 10^3/ul (1.0-4.8); ABS Monocytes 0.6 10^3/ul (0-0.8); ABS Neutrophils 3.8 10^3/ul (1.5-7.7); ABS Nucleated RBC 0 10^3/ul; Eosinophil % 4.7 % (0-6); Hematocrit 44 % (42-52); Hemoglobin 15.3 g/dl (14.0-18.0); Lymphocyte % 33.9 % (25-47); Mean Corpuscular HGB Conc 35 g/dl (31-36); Mean Corpuscular Hemoglobin 31 pg (27-31); Mean Corpuscular Volume 90 fL (80-94); Mean Platelet Volume 8.1 fL (7.4-10.4); Nucleated Red Blood Cells % 0.1; Platelet Count 186 10^3/ul (150-450); Red Blood Count 4.92 10^6/ul (4.00-5.40); Red Cell Distribution Width 14 % (10.5-15); White Blood Count 7.3 10^3/ul (3.5-10.8)
[2018-02-07 23:28] LABS: INR 1.04 (0.77-1.02)
[2018-02-07 23:29] LABS: EGFR Non-African American 81.6 (>60)
[2018-02-08 00:37] VITALS: BP 107/65
== END | disposition home or self-care (01) ==
LOC: ED 20:10
DX: R51 Headache (principal); M54.2 Cervicalgia; R42 Dizziness and giddiness; H53.149 Visual discomfort, unspecified; R20.2 Paresthesia of skin; E11.9 Type 2 diabetes mellitus without complications; Z79.84 Long term (current) use of oral hypoglycemic drugs; Z87.891 Personal history of nicotine dependence
CPT/HCPCS: 36415; 70450; 80053; 85025; 85610; 85730; 96374; 96375; 99282; A9270-GY; J1885; J2765

== ENCOUNTER 2018-09-17 14:02 | Emergency (ER) | payer OTHER ==
[2018-09-17 14:11] VITALS: BP 134/85
--- NOTE | 2018-09-17 14:29 | UC ---
Respiratory Complaint HPI - HPI Summary HPI Summary: pat started experiencing sinus congestion 2 day sago, used sudafed with some relief. yesterday felt worse and used 24h sudafed, today has burning cough that he is concerned will turn into pneumonia since he has a hx of these same symps progressing to pneumonia several times in the past does have an albuterol inhaler that he uses prn , usually when he is sick. complains of continued sinus pressure, congestion today - History of Current Complaint Chief Complaint: UCRespiratory Stated Complaint: SINUS ISSUE Time Seen by Provider: 09/17/18 14:15 Hx Obtained From: Patient Onset/Duration: Gradual Onset Timing: Constant Severity Initially: Mild Severity Currently: Mild Pain Intensity: 3 Character: Cough: Nonproductive Aggravating Factors: Deep Breaths Alleviating Factors: Bronchodilator Associated Signs And Symptoms: Positive: Fever, URI, Nasal Congestion, Sinus Discomfort. Negative: Dyspnea, Hemoptysis - Allergies/Home Medications Allergies/Adverse Reactions: Allergies Allergy/AdvReac Type Severity Reaction Status Date / Time No Known Allergies Allergy Verified 09/17/18 14:11 PMH/Surg Hx/FS Hx/Imm Hx Endocrine History: Diabetes Respiratory History: COPD, Asthma - Surgical History Surgical History: Yes Surgery Procedure, Year, and Place: Anal Fistula 2010, Tonsillectomy, Pins in left hand (screws). - Family History Known Family History: Positive: Unknown, Cardiac Disease, Other - cancer - Social History Occupation: Employed Full-time Lives: With Family Alcohol Use: Occasionally Substance Use Type: None Smoking Status (MU): Former Smoker Type: Cigarettes Have You Smoked in the Last Year: No When Did the Patient Quit Smoking/Using Tobacco: QUIT 15 YEARS AGO 1 PPD HX - Immunization History Most Recent Influenza Vaccination: fall 2016 Most Recent Tetanus Shot: UTD Most Recent Pneumonia Vaccination: never Review of Systems All Other Systems Reviewed And Are Negative: Yes Constitutional: Positive: Fever Skin: Positive: Negative. Negative: Rash Respiratory: Positive: Cough. Negative: Shortness Of Breath Cardiovascular: Positive: Negative Gastrointestinal: Positive: Negative. Negative: Abdominal Pain Musculoskeletal: Positive: Negative Psychological: Positive: Negative Is Patient Immunocompromised?: No Physical Exam Triage Information Reviewed: Yes Appearance: Well-Appearing, No Pain Distress, Obese Vital Signs: Initial Vital Signs Temp 99.3 F 09/17/18 14:07 Pulse 112 06/29/19 14:07 Resp 18 09/17/18 14:07 BP 134/85 09/17/18 14:07 Pulse Ox 95 09/17/18 14:07 Vital Signs Reviewed: Yes Eye Exam: Normal Eyes: Positive: Conjunctiva Clear ENT: Positive: Pharynx normal, Nasal congestion, TMs normal, Sinus tenderness Respiratory: Positive: Rhonchi - R lower and mid lung field. Negative: Respiratory distress, Wheezing Cardiovascular Exam: Normal Cardiovascular: Positive: RRR Neurological Exam: Normal Psychological Exam: Normal Skin Exam: Normal Skin: Negative: Rashes Respiratory Course/Dx - Differential Dx/Diagnosis Differential Diagnosis/HQI/PQRI: Asthma, Exacerbation Of COPD, Lower Resp Infection, Sinusitis Provider Diagnosis: Bronchitis Discharge - Sign-Out/Discharge Documenting (check all that apply): Patient Departure All imaging exams completed and their final reports reviewed: No Studies - Discharge Plan Condition: Stable Disposition: HOME Prescriptions: Cefdinir [Cefdinir 300 MG CAP] 300 mg PO BID #20 capsule Patient Education Materials: Acute Bronchitis (ED) Referrals: Cristela Akers MD [Primary Care Provider] - 2 Days (if no better) Additional Instructions: drink plenty of fluids start cefdinir antibiotic and take as directed use your albuterol inhaler as directed ibuprofen or tylenol as directed for fever Report to ER if your symptoms worsen at anytime - Billing Disposition and Condition Condition: STABLE Disposition: Home
== END 2018-09-17 14:52 | disposition home or self-care (01) ==
LOC: UCEAST 14:02
DX: J40 Bronchitis, not specified as acute or chronic (principal); E11.9 Type 2 diabetes mellitus without complications; J44.9 Chronic obstructive pulmonary disease, unspecified; J45.909 Unspecified asthma, uncomplicated; Z87.891 Personal history of nicotine dependence
CPT/HCPCS: 99212; G0463

== ENCOUNTER 2018-10-13 17:27 | Observation (INO) | payer OTHER ==
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
[2018-10-13 18:31] LABS: ABS Eosinophils 0.3 10^3/ul (0-0.6); ABS Lymphocytes 2.1 10^3/ul (1.0-4.8); ABS Monocytes 0.9 10^3/ul (0-0.8); ABS Neutrophils 5.5 10^3/ul (1.5-7.7); Eosinophil % 3.1 %; Hematocrit 44 % (42-52); Hemoglobin 15.3 g/dL (14.0-18.0); Lymphocyte % 23.9 %; Mean Corpuscular HGB Conc 35 g/dL (31-36); Mean Corpuscular Hemoglobin 32 pg (27-31); Mean Corpuscular Volume 91 fL (80-94); Mean Platelet Volume 8.2 fL (7.4-10.4); Platelet Count 189 10^3/uL (150-450); Red Blood Count 4.82 10^6 /uL (4.18-5.48); Red Cell Distribution Width 15 % (10-15); White Blood Count 8.9 10^3/uL (3.5-10.8)
[2018-10-13 18:49] LABS: Albumin 4.4 g/dL (3.2-5.2); Albumin/Globulin Ratio 1.5 (1-3); BUN/Creatinine Ratio 15.2 (8-20); Calcium 9.6 mg/dL (8.6-10.3); EGFR African American 104.5 (>60); EGFR Non-African American 86.4 (>60); Potassium 3.8 mmol/L (3.5-5.0); Total Bilirubin 0.8 mg/dL (0.2-1.0); Total Protein 7.4 g/dL (6.4-8.9)
[2018-10-13] MEDS ORDERED: LORazepam TAB(*) 1 MG ONE (20:13)
[2018-10-13] MEDS ORDERED: LORazepam INJ* 2 MG/ML 1 ML VIAL IV PUSH ONE (20:13)
[2018-10-13] MEDS ORDERED: Lorazepam PYXIS KEY PRN (20:13)
[2018-10-13] MEDS ORDERED: LORazepam TAB(*) 1 MG PO ONE (20:14)
[2018-10-13] MEDS ORDERED: Al Hydrox/Mg Hydrox/Simet LIQ* 30 ML UDC PO PRN (21:58)
[2018-10-13] MEDS ORDERED: Dextrose 50% VIAL 50 ml IV PUSH PRN (22:01)
[2018-10-13] MEDS ORDERED: Albuterol HFA INHALER* 8 gm MDI INH PRN (22:02)
[2018-10-13] MEDS ORDERED: Ibuprofen TAB* 800 MG PO PRN (22:02)
[2018-10-13] MEDS ORDERED: Albuterol/Ipratropium NEB.SOL* Albuterol 2.5 MG/Ipratropium 0.5 MG 3 ML INH PRN (22:02)
[2018-10-13] MEDS ORDERED: Iodixanol* (CONTRAST) 320 MG/ML 100 ML SDV IV ONE (22:43)
[2018-10-14] MEDS ORDERED: Atorvastatin* 10 MG TAB PO SCH (00:15)
[2018-10-14] MEDS: Acetaminophen TAB* 325 MG PO PRN ×2 (00:21→10:48)
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
[2018-10-14] MEDS: Insulin LISPRO* 1 UNITS UNIT SUBCUT SCH ×3 (08:19→17:06)
[2018-10-14] MEDS ORDERED: Aspirin 81 mg CHEW TAB* 81 MG TAB.CHEW PO SCH (09:00)
[2018-10-14] MEDS ORDERED: Docusate CAP* 100 MG PO SCH (09:00)
[2018-10-14] MEDS ORDERED: Magnesium Sulfate 2 GM IV* 2 GM/50 ML BAG IVPB ONE (09:44)
[2018-10-14] MEDS: Mometasone/Formoter 200/5 MDI INH SCH ×2 (10:18→19:16)
[2018-10-14 10:45] LABS: C Reactive Protein 6.34 mg/L (<8.01)
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
--- NOTE | 2018-10-14 13:21 | EEG ---
ELECTROENCEPHALOGRAPHY: DATE OF SERVICE: 10/14/18 DATE READ: 10/14/18 INDICATION: Mr. Sly Quintero is a 53-year-old man with visual obscuration and headaches. This EEG was obtained to evaluate for epileptiform abnormalities or electrographic seizures. MEDICATIONS: 1. Humalog. 2. Tylenol. 3. Lipitor. 4. Colace. 5. Dulera. 6. Maalox. 7. Ventolin. 8. DuoNeb. 9. Motrin. 10. Aspirin. 11. Lorazepam. CLINICAL STATE: Awake and sleep. REPORT: The waking background showed appropriate organization with a clearly defined anterior-posterior voltage and frequency gradients. There was a well- defined posterior dominant rhythm of 12 Hz which was symmetrical and showed normal reactivity. Anteriorly, there was an expected pattern of lower voltage, irregular, mixed faster frequencies. Attenuation of the occipital rhythm accompanied drowsiness. The sleep background was appropriately organized with well developed sleep spindles and vertex waves. The sleep transient showed appropriate morphology and bilaterally synchronous and symmetrical. Please note that there was excessive, diffuse, low voltage beta frequency throughout the recording. Hyperventilation and photic stimulation were not performed. EKG showed a normal sinus rhythm with a rate of 75 beats per minute. LINICAL IMPRESSION: This is an essentially normal awake and sleep EEG. There was diffuse excess beta frequency throughout the recording. This finding is seen with benzodiazepine and barbiturates use correlating with the patient's lorazepam dose given yesterday. [id number]/[facility] #: [id number] MTDD
[2018-10-14] MEDS ORDERED: Butalb/Acetamin/Caff TAB* 1 TAB PO ONE (15:22)
[2018-10-14] MEDS ORDERED: Ondansetron INJ* 2 MG/ML VIAL IV ONE (15:22)
[2018-10-14 16:10] VITALS: BP 122/62
[2018-10-14] MEDS ORDERED: Metoclopramide IV* 5 MG/ML 2 ML VIAL IV SLOW PU ONE (17:11)
[2018-10-14] MEDS ORDERED: Ketorolac INJ* 30 MG/ML 1 ML VIAL IV PUSH ONE (17:11)
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
== END 2018-10-14 19:30 | disposition home or self-care (01) ==
LOC: ED 17:27 → MEDTELE 21:58
PROVIDERS: ADMIT Internal Medicine; ATTEND Internal Medicine
DX: G43.809 Other migraine, not intractable, without status migrainosus (principal); F07.81 Postconcussional syndrome; E11.9 Type 2 diabetes mellitus without complications; J45.909 Unspecified asthma, uncomplicated; E78.5 Hyperlipidemia, unspecified; Z79.899 Other long term (current) drug therapy; Z87.891 Personal history of nicotine dependence; H53.9 Unspecified visual disturbance; Z87.01 Personal history of pneumonia (recurrent)
CPT/HCPCS: 36415; 70450; 70496; 70498; 70551; 80053; 80061; 82607; 85025; 85652; 86140; 93005; 94640; 95819; 96365; 96366; 96375; 99284; A9270-GY; G0378; J1885; J2405; J2765; J3475; Q9967